=== PATIENT | male | born 1965 | race Two or more races ===

== ENCOUNTER 2017-06-17 08:40 | Day surgery (SDC) | payer BC ==
[2017-06-17] MEDS ORDERED: LACTATED RINGERS 1,000 ML IV ONE (09:15)
[2017-06-17 09:21] VITALS: TEMP 98.6
[2017-06-17] MEDS ORDERED: LIDOCAINE 1% INJ 10MG/ML (20 ML MDV) ONE (09:41)
[2017-06-17] MEDS ORDERED: PROPOFOL 10 MG/ML 20 ML VIAL IV ONE (09:41)
--- NOTE | 2017-06-17 10:11 | P.PCN ---
Date of Procedure: 06/17/17 Procedure(s) Performed: Brief history: Patient is a pleasant 51-year-old white male, scheduled for an elective upper endoscopy as well as colonoscopy as a part of evaluation of recurrent eye deficiency anemia. He was recently noted to have a hemoglobin of 6.7 requiring 2 units of blood transfusion. He had a similar episode 3 years ago and had an upper endoscopy as well as colonoscopy that was unremarkable. He does have long -standing history of GERD and has been on Prilosec 20 mg daily. Procedure performed: Esophagogastroduodenoscopy with biopsy Colonoscopy with snare polypectomy Preoperative diagnosis: Recurrent iron deficiency anemia Long-standing history of GERD. Anesthesia: MAC Procedure: After informed consent was obtained from the patient was brought into the endoscopy unit and IV sedation was administered by anesthesia under continuous monitoring. Initially upper endoscopy was done. The Olympus GF 160 video endoscope was inserted inserted into the mouth and esophagus intubated without any difficulty and was gradually advanced into the stomach and duodenum and carefully examined. The bulb and second part of the duodenum appeared normal. The scope was then withdrawn into the stomach adequately insufflated with air and upon careful examination the antrum and body, had multiple small gastric polyps which were biopsied. The cardia and fundus appeared normal. The scope was then withdrawn into the esophagus. Moderate size hiatal hernia noted. The GE junction was located at 35 cm to the incisors. It appeared regular with no erythema erosions or ulcerations. Rest of the esophagus appeared normal. Patient tolerated the procedure well. At this time the patient continued to remain sedation. Initial digital rectal examination was normal. Olympus CF 160 video colonoscope was then inserted into the rectum and gradually advanced to the cecum [id number] difficulty. Careful examination was performed as the scope was gradually being withdrawn. The prep was excellent. The cecum, and 1 cm polyp that was removed by snare polypectomy. In the transverse colon there was another 1 cm polyp removed by snare polypectomy. ascending colon, transverse colon, descending colon, sigmoid colon and rectum appeared normal. Scattered diffuse diverticulosis seen. Retroflexion was performed in the rectum and no lesions were noted. Patient tolerated the procedure well. Impression: 1. Upper endoscopy revealed moderate size hiatal hernia and small gastric polyps. 2. Colonoscopy revealed 1 cm cecal and transverse colon polyp status post snare polypectomy and moderate sigmoid diverticulosis. Recommendations: Findings of this examination were discussed with the patient as well as his family. He was advised to follow with the biopsy results. He can have a repeat screening colonoscopy in 3-5 years. He'll be scheduled for a small bowel capsule endoscopy to evaluate for small bowel source of occult GI blood loss.
[2017-06-17 10:39] VITALS: RESP 16
[2017-06-17 10:41] VITALS: BP 121/78; PULSE 78
== END 2017-06-17 11:18 | disposition home or self-care (01) ==
LOC: ORWHC2ENDO 08:40
PROVIDERS: ATTEND Internal Medicine Gastroenterology
DX: K31.7 Polyp of stomach and duodenum (principal); K21.9 Gastro-esophageal reflux disease without esophagitis; K44.9 Diaphragmatic hernia without obstruction or gangrene; D12.0 Benign neoplasm of cecum; D12.3 Benign neoplasm of transverse colon; K57.30 Diverticulosis of large intestine without perforation or abscess without bleeding; Z79.899 Other long term (current) drug therapy
CPT/HCPCS: 88305; 45385; 43239; J2001; J2704

== ENCOUNTER → 2017-07-01 | Day surgery (SDC) | payer BC ==
[~2017-07-01] MED LIST: SIMETHICONE 40 MG/0.6 ML DROPS 2,000 MG/30 ML BOTTLE PO ONE
== END ==
LOC: ORWHC2ENDO 07:00
PROVIDERS: ATTEND Internal Medicine Gastroenterology
DX: D50.9 Iron deficiency anemia, unspecified (principal); K92.1 Melena
CPT/HCPCS: 91110

== ENCOUNTER 2019-12-05 20:23 | Inpatient (IN) | payer BC ==
[2019-12-05] MEDS ORDERED: NALOXONE 0.4 MG/ML 1 ML VIAL IV PRN (20:38)
[2019-12-05] MEDS ORDERED: HYDROmorphone 2 MG TAB PO PRN (20:38)
[2019-12-05] MEDS ORDERED: ONDANSETRON 4 MG/2 ML VIAL IVP PRN (20:38)
[2019-12-05] MEDS ORDERED: metroNIDAZOLE-NS PMX 500 MG in SALINE 1 100ML.BAG IVPB STA (20:38)
--- NOTE | 2019-12-05 20:39 | ED ---
Abdominal Pain HPI - General Chief Complaint: Abdominal Pain Stated Complaint: Diverticulitis Time Seen by Provider: 12/05/19 20:26 Source: patient, EMS, RN notes reviewed Mode of arrival: EMS Limitations: no limitations - History of Present Illness Initial Comments: 54-year-old male presents emergency department as a transfer [facility] for acute diverticulitis with perforation. Patient's had recurrent diverticulitis no prior perforations does not see a current surgeon. Patient has seen Dr. Coles in the past. Pain started yesterday progressed today. He's had some loose stools he denies eating or drinking today. No reported fever. Patient states pulses pain is in his left lower quadrant. - Related Data Home Medications Medication Instructions Recorded Confirmed ALPRAZolam [Xanax] 1 tab PO DAILY PRN 06/17/17 06/17/17 Citalopram Hydrobromide [CeleXA] 20 mg PO DAILY 06/17/17 06/17/17 Multivitamin/Iron/Folic Acid 1 tab PO DAILY 06/17/17 06/17/17 [Centrum Complete Multivit Tab] Omeprazole [PriLOSEC] 20 mg PO AC-BRKFST 06/17/17 06/17/17 Simvastatin [Zocor] 1 tab PO HS 06/17/17 06/17/17 Vit A,C & B-[id number]-[id number] [Ivite] 1 tab PO DAILY PRN 06/17/17 06/17/17 Allergies Allergy/AdvReac Type Severity Reaction Status Date / Time No Known Allergies Allergy Verified 06/17/17 08:58 Review of Systems ROS Statement: Those systems with pertinent positive or pertinent negative responses have been documented in the HPI. ROS Other: All systems not noted in ROS Statement are negative. Past Medical History Past Medical History: GERD/Reflux Additional Past Medical History / Comment(s): Diverticulitis History of Any Multi-Drug Resistant Organisms: None Reported Past Surgical History: Hernia Repair, Tonsillectomy Additional Past Surgical History / Comment(s): BILATERAL ROTATOR CUFFS ARTHROSCOPY, EGD/COLONOSCOPY. UMBILICAL HERNIA REPAIR. Past Anesthesia/Blood Transfusion Reactions: No Reported Reaction Additional Past Anesthesia/Blood Transfusion Reaction / Comment(s): PT HAD A BLOOD TRANSFUSION IN 2017 FOR LOWER HGB 6.9 NO ISSUES Past Psychological History: Anxiety Smoking Status: Never smoker Past Alcohol Use History: Occasional Past Drug Use History: None Reported - Past Family History Father Family Medical History: Diabetes Mellitus General Exam Limitations: no limitations General appearance: alert, in no apparent distress Head exam: Present: atraumatic, normocephalic, normal inspection Neck exam: Present: normal inspection. Absent: tenderness, meningismus, lymphadenopathy Respiratory exam: Present: normal lung sounds bilaterally. Absent: respiratory distress, wheezes, rales, rhonchi, stridor Cardiovascular Exam: Present: regular rate, normal rhythm, normal heart sounds. Absent: systolic murmur, diastolic murmur, rubs, gallop, clicks GI/Abdominal exam: Present: soft, tenderness (Moderate left lower quadrant), rebound, normal bowel sounds. Absent: distended, guarding, rigid Course Vital Signs 12/05/19 20:29 Temperature 98 F Pulse Rate 74 Respiratory 18 Rate Blood Pressure 133/72 O2 Sat by Pulse 100 Oximetry Medical Decision Making - Medical Decision Making CT shows evidence of acute enterocolitis with perforation no abscess. Labs shows mild leukocytosis no lactic acidosis. Patient was given Levaquin patient will be admitted to Dr. Morrissey on Zosyn, pain control. Disposition Clinical Impression: Diverticulitis of colon with perforation Disposition: ADMITTED IP TO THIS HOSP Condition: Serious Referrals: Geovanny Miguel MD [Primary Care Provider] - 1-2 days
[2019-12-05] MEDS ORDERED: LEVOFLOXACIN 750MG-D5W PMX 750 MG in DEXTROSE/WATER 1 150ML.BAG IVPB SCH (20:45)
[2019-12-05] MEDS ORDERED: PIPERACILLIN-TAZOBACTAM 3.375 GM in SODIUM CHLORIDE 0.9% 100 ML IVPB STA (20:58)
[2019-12-05] MEDS: SODIUM CHLORIDE 0.9% 1,000 ML IV SCH (21:37)
[2019-12-05] MEDS: HYDROmorphone 0.5 MG/0.5 ML SYRINGE IVP PRN (22:51)
[2019-12-06] MEDS ORDERED: metroNIDAZOLE-NS PMX 500 MG in SALINE 1 100ML.BAG IVPB SCH
[2019-12-06] MEDS: HYDROmorphone 0.5 MG/0.5 ML SYRINGE IVP PRN ×4 (05:04→17:32)
[2019-12-06] MEDS: SODIUM CHLORIDE 0.9% 1,000 ML IV SCH ×3 (05:04→22:40)
[2019-12-06] MEDS: PIPERACILLIN-TAZOBACTAM 3.375 GM in SODIUM CHLORIDE 0.9% 100 ML IVPB SCH ×3 (05:05→22:39)
--- NOTE | 2019-12-06 14:10 | XR ---
EXAMINATION TYPE: XR abdomen 2V DATE OF EXAM: 12/06/2019 COMPARISON: NONE HISTORY: Pain TECHNIQUE: One view abdominal series FINDINGS: The osseous structures are intact. The bowel gas pattern is nonspecific. Lung bases are clear. Hiat al hernia noted. Postsurgical changes seen. Arthropathy of the hips. Degenerative changes seen. Vascu lar calcifications noted. IMPRESSION: 1. Nonspecific abdomen.
--- NOTE | 2019-12-06 14:18 | P.CONS ---
<Samantha Mendoza - Last Filed: 12/06/19 14:02> History of Present Illness - Reason for Consult Consult date: 12/06/19 - History of Present Illness CHIEF COMPLAINT: Abdominal pain HISTORY OF PRESENT ILLNESS: This is a 54-year-old male with a known history of recurrent diverticulitis, anxiety, GERD, umbilical hernia repair, hyperlipidemia and GI bleeds. Patient was a transfer from [facility] for acute diverticulitis with perforation. He initially presented to ER with complaints of lower abdominal pain. He reports his symptoms have started last week initia lly with black tarry stools. That appeared to resolve and then he started having right and left lower quadrant abdominal pain that continued to worsen. He rates his pain at 8/10. Patient reports eating a Page nut mix about 3 days ago. Computed tomography scan of abdomen at [place] has shown new to monitor. Severe acute diverticulitis proximal to mid sigmoid colon and upper to mid pelvis with perforation. His last bowel movement was on Tuesday which was normal. He reports taking one dose of Cipro that his PCP started for acute diverticulitis. Last colonoscopy [address] Coles patient reports checking diverticulosis. Denies any fever, chills, sweats, nausea or vomiting. He is afebrile. WBC 11.25, hemoglobin 12.8 and lactic acid 1.3 at [facility] PAST MEDICAL HISTORY: See list. PAST SURGICAL HISTORY: See list. MEDICATIONS: See list. ALLERGIES: See list. SOCIAL HISTORY: No illicit drug use. REVIEW OF SYSTEMS: CONSTITUTIONAL: Denies fever or chills. HEENT: Denies blurred vision, vision changes, or eye pain. Denies hemoptysis ENDOCRINE: Denies heat or cold intolerance. CARDIOVASCULAR: Denies chest pain or pressure. RESPIRATORY: No shortness of breath. GASTROINTESTINAL: Denies abdominal pain. Denies nausea or vomiting. NEURO: Denies history of seizures. PSYCH: No depression or suicidal ideation HEMATOLOGIC: Denies bleeding disorders. LYMPHATIC: The patient denies any lumps and bumps around the neck. GENITOURINARY: Denies any blood in urine or increased urinary frequency. MUSCULOSKELETAL: Denies myalgias. Denies joint swelling. Denies decreased range of motion beyond patients baseline. SKIN: Denies pruitis. Denies rash. PHYSICAL EXAM: VITAL SIGNS: Reviewed GENERAL: Well-developed in no acute distress. HEENT: No sclera icterus. Extraocular movements grossly intact. Moist buccal mucosa. Head is atraumatic, normocephalic. Hears conversational speech. No nasal drainage. NECK: Supple without lymphadenopathy. CHEST: Non-labored respirations and equal bilateral excursions. CARDIOVASCULAR: Regular rate with regular rhythm. Palpable 2+ radial pulses. ABDOMEN: Soft. Nondistended. Lower mid abdomen and left lower quadrant tenderness with palpation MUSCULOSKELETAL: No clubbing or cyanosis. NEUROLOGIC: No focal or lateralizing signs. Cranial nerves II through XII grossly intact. PSYCH: Appropriate affect. Alert and oriented to person, place and time. SKIN: Well perfused. Good skin turgor. LABORATORY DATA: Tom 11.25, hemoglobin 12.8, lactic acid 1.3 at [facility] IMAGING: Computed tomography scan of the abdomen and pelvis showing new moderate to severe acute diverticulitis of the proximal to mid sigmoid colon and upper to mid pelvis with perforation ASSESSMENT: 1. Abdominal pain 2. Acute diverticulitis with perforation 3. History of diverticulitis 4. History of GI bleed PLAN: -Check two-view abdominal x-ray -Check stat CBC, PT/INR, CMP -Check 12-lead EKG -Continue IV Zosyn and IV Flagyl -Continue IV fluids -Continue pain medications -And Protonix 40 mg IV daily Physician Rn Recovery note has been reviewed by physician. Signing provider agrees with the documented findings, assessment, and plan of care. Past Medical History Past Medical History: GERD/Reflux Additional Past Medical History / Comment(s): Diverticulitis History of Any Multi-Drug Resistant Organisms: None Reported Past Surgical History: Hernia Repair, Tonsillectomy Additional Past Surgical History / Comment(s): BILATERAL ROTATOR CUFFS ARTHROSCOPY, EGD/COLONOSCOPY. UMBILICAL HERNIA REPAIR. Past Anesthesia/Blood Transfusion Reactions: No Reported Reaction Additional Past Anesthesia/Blood Transfusion Reaction / Comm: PT HAD A BLOOD TRANSFUSION IN 2017 FOR LOWER HGB 6.9 NO ISSUES Past Psychological History: Anxiety Additional Psychological History / Comment(s): TAKES XANAX PRN FOR JOB STRESS Smoking Status: Never smoker Past Alcohol Use History: Occasional Past Drug Use History: None Reported - Past Family History Father Family Medical History: Diabetes Mellitus Medications and Allergies Home Medications Medication Instructions Recorded Confirmed Type Citalopram Hydrobromide [CeleXA] 20 mg PO DAILY 06/17/17 12/05/19 History Omeprazole [PriLOSEC] 20 mg PO DAILY 06/17/17 12/05/19 History Simvastatin [Zocor] 20 mg PO HS 06/17/17 12/05/19 History ALPRAZolam [Xanax] 0.5 mg PO HS PRN 12/05/19 12/05/19 History Multivit-Min/FA/Lycopen/Lutein 1 tab PO DAILY 12/05/19 12/05/19 History [Centrum Silver Men Tablet] Allergies Allergy/AdvReac Type Severity Reaction Status Date / Time No Known Allergies Allergy Verified 12/05/19 21:28 Physical Exam Vitals: Vital Signs Temp Pulse Pulse Resp BP BP Pulse Ox 12/06/19 07:00 97.8 F 62 18 105/71 97 12/05/19 22:34 98.4 F 65 15 114/65 100 12/05/19 20:29 98 F 74 18 133/72 100 Intake and Output 12/05/19 12/06/19 12/06/19 22:59 06:59 14:59 Intake Total 130 1040 Balance 130 1040 Intake: IV 1040 Sodium Chloride 0.9% 1, 1040 000 ml @ 130 mls/hr IV . Q7H42M [facility] Rx#:[id number] Intake, IV Titration 130 Amount Sodium Chloride 0.9% 1, 130 000 ml @ 130 mls/hr IV . Q7H42M [facility] Rx#:[id number] Other: # Voids 2 2 3 Weight 96.615 kg <Brooklyn Simon - Last Filed: 12/06/19 20:54> History of Present Illness - History of Present Illness Patient seen and evaluated. Additional recommendations noted. Please see separate surgical consultation. Physical Exam Vitals: Vital Signs Temp Pulse Resp BP Pulse Ox 12/06/19 19:59 97.4 F L 67 20 127/83 99 12/06/19 14:19 98.5 F 57 L 14 135/89 98 12/06/19 07:00 97.8 F 62 18 105/71 97 12/05/19 22:34 98.4 F 65 15 114/65 100 Intake and Output 12/06/19 12/06/19 12/06/19 06:59 14:59 22:59 Intake Total 1040 Balance 1040 Intake: IV 1040 Sodium Chloride 0.9% 1, 1040 000 ml @ 130 mls/hr IV . Q7H42M [facility] Rx#:[id number] Other: # Voids 2 3 Results CBC & Chem 7: 12/06/19 14:09 12/06/19 14:09 Labs: Abnormal Lab Results - Last 24 Hours (Table) 12/06/19 Range/Units 14:09 Hgb 12.6 L (13.0-17.5) gm/dL Assessment and Plan (1) Diverticulitis of colon with perforation Current Visit: Yes Status: Acute Code(s): K57.20 - DVTRCLI OF LG INT W PERFORATION AND ABSCESS W/O BLEEDING SNOMED Code(s): 15330579
[2019-12-06 14:23] LABS: Basophils % (A) 0 %; Eosinophils # (A) 0.1 k/uL (0-0.7); Eosinophils % (A) 1 %; HCT 40.4 % (39.0-53.0); HGB 12.6 gm/dL (13.0-17.5); Hypochromasia Slight; Lymphocytes # (A) 1.3 k/uL (1.0-4.8); Lymphocytes % (A) 17 %; MCH 26.3 pg (25.0-35.0); MCHC 31.1 g/dL (31.0-37.0); MCV 84.4 fL (80.0-100.0); Mean Platelet Volume 7.8; Monocytes # (A) 0.5 k/uL (0-1.0); Monocytes % (A) 6 %; Neutrophils # (A) 5.6 k/uL (1.3-7.7); Neutrophils % (A) 73 %; Platelet Count 251 k/uL (150-450); RBC 4.78 m/uL (4.30-5.90); RDW 14.8 % (11.5-15.5); WBC 7.7 k/uL (3.8-10.6)
[2019-12-06 14:33] LABS: Prothrombin Time 10.3 sec (9.0-12.0)
[2019-12-06 14:34] LABS: ALT 15 U/L (4-49); AST 21 U/L (17-59); African American GFR (CKD) >90 (>60 ml/min/1.73 sqM); Albumin 4.2 g/dL (3.5-5.0); Alkaline Phosphatase 67 U/L (38-126); Anion Gap 9 mmol/L; Blood Urea Nitrogen 12 mg/dL (9-20); Carbon Dioxide 22 mmol/L (22-30); Chloride 106 mmol/L (98-107); Glucose 90 mg/dL (74-99); Non-African American GFR(CKD) >90 (>60 ml/min/1.73 sqM); Sodium 137 mmol/L (137-145); Total Bilirubin 0.7 mg/dL (0.2-1.3)
--- NOTE | 2019-12-06 15:41 | P.HPIM ---
History of Present Illness H&P Date: 12/06/19 Chief Complaint: Abdominal pain, transferred from [facility]. Mr. Rogel is a 54-year-old male, who is a patient of Dr. Miguel in outpatient setting, with a past medical history of chronic diverticulosis, GERD transferred from [facility] for concerns of diverticulitis. Patient states that he had sharp pain in both his lower abdominal quadrants mostly on the left side for the past couple of days. Patient has history of diverticulosis and thought it could be one of his flareups. Patient states that it is associated with some nausea but no vomiting. He denies having any diarrhea or constipation. Patient denies having any dysuria or hematuria. He denies having any low back pain or flank pain. He denies having any fevers or chills. The pain started to bother him since Tuesday night, Tuesday morning he went to [facility]. At [facility] he had a CAT scan of his abdomen and pelvis showing significant diverticulosis involving the left and sigmoid colon with nonfocal moderate to severe ill-defined fluid and fat stranding in the upper to middle pelvis anteriorly just left to him midline involving the proximal to mid sigmoid colon. There is perforation with extraluminal Syd. No peak wall fluid collection or drainable abscess. He also had blood work showing white count of 11.5, hemoglobin 12.8, platelets 297. Electrolytes sodium 137 combination 4, chloride 102, bicarbonate 27, BUN/creatinine 13 creatinine 1.0. AST 22, ALT 17, alkaline phosphatase 78, total bilirubin 0.8, albumin 4.8, ammonia less than 9, PTT/INR 10.9/1.03. Later the patient is transferred to [facility] with surgical consultation. Review of Systems REVIEW OF SYSTEMS: CONSTITUTIONAL: No fever, no malaise, no fatigue. HEENT: No recent visual problems or hearing problems. Denied any sore throat. CARDIOVASCULAR: No chest pain, palpitations, orthopnea or PND PULMONARY: Denies having any difficulty in breathing or cough GASTROINTESTINAL: As per HPI NEUROLOGICAL: No headaches, no weakness, no numbness. HEMATOLOGICAL: Denies any bleeding or petechiae. GENITOURINARY: Denies any burning micturition, frequency, or urgency. MUSCULOSKELETAL/RHEUMATOLOGICAL: No joint swelling or pain ENDOCRINE: Denies any polyuria or polydipsia. The rest of the 13-point review of systems is negative. Past Medical History Past Medical History: GERD/Reflux Additional Past Medical History / Comment(s): Diverticulitis History of Any Multi-Drug Resistant Organisms: None Reported Past Surgical History: Hernia Repair, Tonsillectomy Additional Past Surgical History / Comment(s): BILATERAL ROTATOR CUFFS ARTHROSCOPY, EGD/COLONOSCOPY. UMBILICAL HERNIA REPAIR. Past Anesthesia/Blood Transfusion Reactions: No Reported Reaction Additional Past Anesthesia/Blood Transfusion Reaction / Comment(s): PT HAD A BLOOD TRANSFUSION IN 2017 FOR LOWER HGB 6.9 NO ISSUES Past Psychological History: Anxiety Additional Psychological History / Comment(s): TAKES XANAX PRN FOR JOB STRESS Smoking Status: Never smoker Past Alcohol Use History: Occasional Past Drug Use History: None Reported - Past Family History Father Family Medical History: Diabetes Mellitus Medications and Allergies Home Medications Medication Instructions Recorded Confirmed Type Citalopram Hydrobromide [CeleXA] 20 mg PO DAILY 06/17/17 12/05/19 History Omeprazole [PriLOSEC] 20 mg PO DAILY 06/17/17 12/05/19 History Simvastatin [Zocor] 20 mg PO HS 06/17/17 12/05/19 History ALPRAZolam [Xanax] 0.5 mg PO HS PRN 12/05/19 12/05/19 History Multivit-Min/FA/Lycopen/Lutein 1 tab PO DAILY 12/05/19 12/05/19 History [Centrum Silver Men Tablet] Allergies Allergy/AdvReac Type Severity Reaction Status Date / Time No Known Allergies Allergy Verified 12/05/19 21:28 Physical Exam Vitals: Vital Signs Temp Pulse Pulse Resp BP BP Pulse Ox 12/06/19 07:00 97.8 F 62 18 105/71 97 12/05/19 22:34 98.4 F 65 15 114/65 100 12/05/19 20:29 98 F 74 18 133/72 100 Intake and Output 12/05/19 12/06/19 12/06/19 22:59 06:59 14:59 Intake Total 130 1040 Balance 130 1040 Intake: IV 1040 Sodium Chloride 0.9% 1, 1040 000 ml @ 130 mls/hr IV . Q7H42M [facility] Rx#:[id number] Intake, IV Titration 130 Amount Sodium Chloride 0.9% 1, 130 000 ml @ 130 mls/hr IV . Q7H42M [facility] Rx#:[id number] Other: # Voids 2 2 3 Weight 96.615 kg PHYSICAL EXAMINATION: GENERAL: appears to be in no acute distress, looks appropriate for his age HEENT: Pupils are round and equally reacting to light. EOMI. no scleral icterus. No conjunctival pallor. CARDIOVASCULAR: S1 and S2 heard. No additional sounds. PULMONARY: Bilateral breath sounds are positive. No wheeze or crackles. ABDOMEN: Soft, mild tenderness in the left upper and lower quadrants, nondistended, normoactive bowel sounds. No palpable organomegaly. MUSCULOSKELETAL: No joint swelling or deformity. EXTREMITIES: No cyanosis, clubbing, or pedal edema. NEUROLOGICAL: Alert awake oriented 3, Gross neurological examination did not reveal any focal deficits. SKIN: No rash Results CBC & Chem 7: 12/06/19 14:09 12/06/19 14:09 Thrombosis Risk Factor Assmnt - Choose All That Apply Any of the Below Risk Factors Present?: No Assessment and Plan Assessment: ASSESSMENT Abdominal pain due to Acute diverticulitis with perforation History of diverticulitis History of GERD History of hernia repair History of tonsillectomy History of umbilical hernia repair PLAN: Patient has been started on IV antibiotics in the form of Zosyn. Currently the patient does not have abdominal pain. His vitals within normal limits. Labs from [facility] reviewed. Surgery Dr. Simon on board and following. Patient will be getting an abdominal x-ray, further management depending on the course. We will keep the patient nothing by mouth. Lovenox for DVT prophylaxsis. Further recommendations depending on the progress of the patient.
--- NOTE | 2019-12-06 20:53 | P.GSCN ---
History of Present Illness Consult date: 12/06/19 History of present illness: CHIEF COMPLAINT: Diverticulitis HISTORY OF PRESENT ILLNESS: The patient is a 54-year-old male who was admitted as transfer from [facility] after developing severe abdominal pain from perforated diverticulitis. He had a CT of the abdomen and pelvis done yesterday at his local facility. His presentation to his local ER included severe abdominal pain, "I was prepped for surgery." Secondary to the potential need for critical care management, patient was transferred to [facility]. Patient also reports pre-existing history of anemia ongoing for the past 4 years-5 years with intermittent rectal bleeding after stressful episodes. Patient reports dark blood at those events. He also had blood transfusions for hemoglobin less than 7.0. He reports multiple workups including upper and lower endoscopies as well as bowel capsule performed by GI. He reports all findings were unremarkable. He reports his last bleeding episode was over 1-2 weeks ago. Now he presents for moderate severe bilateral lower abdominal pain. Since admission and IV antibiotics, his abdominal pain has moderately improved. He is more comfortable. His is at bedside. His also provides additional history of diverticulosis. Patient was eating nuts within 3 days of his current event. PAST MEDICAL HISTORY: See list and reviewed PAST SURGICAL HISTORY: See list and reviewed MEDICATIONS: See list and reviewed ALLERGIES: See list and reviewed SOCIAL HISTORY: See list and reviewed FAMILY HISTORY: See list and reviewed REVIEW OF ORGAN SYSTEMS: CONSTITUTIONAL: No fevers or chills. No recent weight loss. EYES: Denies any trouble with vision. Wears glasses. HEENT: No difficulties with hearing. No nosebleeds. No difficulty swallowing. RESPIRATORY: Denies pneumonia. Denies any troubles with breathing or dyspnea on exertion. CARDIOVASCULAR: Denies any chest pain, palpitations, or recent heart attacks. GASTROINTESTINAL: Has gastroesophageal reflux disease. Has pre-existing history of rectal bleeding including anemia. GENITOURINARY: Denies any blood in urine or increased urinary frequency. NEUROLOGICAL: Denies any numbness or tingling along the distal extremities. No seizure disorders or headaches. MUSCULOSKELETAL: Has back pain, stiffness or joint arthritis. SKIN: No current skin cancer. No rash. PSYCHIATRIC: Has depression. Has anxiety. ENDOCRINE: Denies current thyroid disorders. Denies any blood sugar glucose intolerance. HEME/LYMPHATIC: Denies any lumps and bumps around the neck. No recent deep venous thrombosis. Pre-existing history of chronic anemia. ALLERGY/IMMUNOLOGY: No immunoglobulin therapy. No immune deficiencies. BREAST: Denies current breast lumps, pain or nipple discharge. PHYSICAL EXAM: VITALS: Reviewed CONSTITUTIONAL: Well developed and in no acute distress. EYES: Conjuctivae without sclera icterus. Pupils are equally round and reactive to light. Extraocular movements grossly intact. HEAD, EARS, NOSE, THROAT: Moist buccal mucosa. Head is atraumatic, normoceph alic. Hears conversational speech. No nasal drainage. NECK: Supple. No JV distention. No thyroidomegaly. RESPIRATORY: Non-labored respirations and equal bilateral excursions. No gross wheezes. CARDIOVASCULAR: Regular rate and rhythm. Extremities without moderate edema. Palpable 2+ radial pulses. ABDOMEN: Soft. Tender along the bilateral lower abdomen. Has worsening abdominal pain with jarring of the bed. LYMPH: No neck lymphadenopathy. MUSCULOSKELETAL: Nail and fingers with good capillary refill. SKIN: Warm and well perfused with good skin turgor. NEUROLOGIC: Cranial nerves II through XII grossly intact. Sensation upper and extremities intact. No focal or lateralizing signs. PSYCH: Appropriate affect. Alert and oriented to person, place and time. Displays appropriate insight. RECORDS: previous old records reviewed of colonoscopy 2018 demonstrating scattered diverticulosis with removal of tubular adenoma sigmoid colon. ASSESSMENT: 1. Abnormal computed tomography scan of perforated diverticulitis at outside institution PLAN: 1. Recommend abdominal x-ray to exclude free air. 2. Recommend CBC and CMP to monitor infection. 3. Continue IV antibiotics 4. Surgical intervention pending clinical course including follow-up abdominal x-ray. Patient is aware that present pneumoperitoneum on abdominal film may warrant surgical intervention with colostomy. ADDENDUM: CLINCAL LABS: Reviewed. WBC normal 7.7, no left shift. IMAGING: Independently reviewed abdominal x-ray without free air. Outside CT of the abdomen and pelvis independently reviewed demonstrating moderate sized paraesophageal hiatal hernia incorporating over 40% of the stomach incarcerated in the mediastinum. Moderate stool burden identified. Also moderate scattered diverticulosis. Focal inflammation of sigmoid diverticulitis of the sigmoid colon of the lower pelvis. No diffuse free air identified. This is my independent interpretation. RADIOLOGY: Report reviewed, x-ray confirms unremarkable abdominal film. With findings on computed tomography scan including abdominal x-ray and labs, at this time conservative management. Patient does report moderate improvement of his abdominal pain. Continue with IV antibiotics. Outpatient management for diverticulitis also reviewed. Thank you for this kind consultation. Past Medical History Past Medical History: GERD/Reflux Additional Past Medical History / Comment(s): Diverticulitis History of Any Multi-Drug Resistant Organisms: None Reported Past Surgical History: Hernia Repair, Tonsillectomy Additional Past Surgical History / Comment(s): BILATERAL ROTATOR CUFFS ARTHROSCOPY, EGD/COLONOSCOPY. UMBILICAL HERNIA REPAIR. Past Anesthesia/Blood Transfusion Reactions: No Reported Reaction Additional Past Anesthesia/Blood Transfusion Reaction / Comm: PT HAD A BLOOD TRANSFUSION IN 2017 FOR LOWER HGB 6.9 NO ISSUES Past Psychological History: Anxiety Additional Psychological History / Comment(s): TAKES XANAX PRN FOR JOB STRESS Smoking Status: Never smoker Past Alcohol Use History: Occasional Past Drug Use History: None Reported - Past Family History Father Family Medical History: Diabetes Mellitus Medications and Allergies Home Medications Medication Instructions Recorded Confirmed Type Citalopram Hydrobromide [CeleXA] 20 mg PO DAILY 06/17/17 12/05/19 History Omeprazole [PriLOSEC] 20 mg PO DAILY 06/17/17 12/05/19 History Simvastatin [Zocor] 20 mg PO HS 06/17/17 12/05/19 History ALPRAZolam [Xanax] 0.5 mg PO HS PRN 12/05/19 12/05/19 History Multivit-Min/FA/Lycopen/Lutein 1 tab PO DAILY 12/05/19 12/05/19 History [Centrum Silver Men Tablet] Allergies Allergy/AdvReac Type Severity Reaction Status Date / Time No Known Allergies Allergy Verified 12/05/19 21:28 Surgical - Exam Vital Signs Temp Pulse Resp BP Pulse Ox 98 F 74 18 133/72 100 12/05/19 20:29 12/05/19 20:29 12/05/19 20:29 12/05/19 20:29 12/05/19 20:29 Results - Labs 12/06/19 14:09 12/06/19 14:09 Abnormal Lab Results - Last 24 Hours (Table) 12/06/19 Range/Units 14:09 Hgb 12.6 L (13.0-17.5) gm/dL Diabetes panel 12/06/19 Range/Units 14:09 Sodium 137 (137-145) mmol/L Potassium 4.0 (3.5-5.1) mmol/L Chloride 106 (98-107) mmol/L Carbon Dioxide 22 (22-30) mmol/L BUN 12 (9-20) mg/dL Creatinine 0.82 (0.66-1.25) mg/dL Glucose 90 (74-99) mg/dL Calcium 9.0 (8.4-10.2) mg/dL AST 21 (17-59) U/L ALT 15 (4-49) U/L Alkaline Phosphatase 67 (38-126) U/L Total Protein 7.0 (6.3-8.2) g/dL Albumin 4.2 (3.5-5.0) g/dL Calcium panel 12/06/19 Range/Units 14:09 Calcium 9.0 (8.4-10.2) mg/dL Albumin 4.2 (3.5-5.0) g/dL Pituitary panel 12/06/19 Range/Units 14:09 Sodium 137 (137-145) mmol/L Potassium 4.0 (3.5-5.1) mmol/L Chloride 106 (98-107) mmol/L Carbon Dioxide 22 (22-30) mmol/L BUN 12 (9-20) mg/dL Creatinine 0.82 (0.66-1.25) mg/dL Glucose 90 (74-99) mg/dL Calcium 9.0 (8.4-10.2) mg/dL Adrenal panel 12/06/19 Range/Units 14:09 Sodium 137 (137-145) mmol/L Potassium 4.0 (3.5-5.1) mmol/L Chloride 106 (98-107) mmol/L Carbon Dioxide 22 (22-30) mmol/L BUN 12 (9-20) mg/dL Creatinine 0.82 (0.66-1.25) mg/dL Glucose 90 (74-99) mg/dL Calcium 9.0 (8.4-10.2) mg/dL Total Bilirubin 0.7 (0.2-1.3) mg/dL AST 21 (17-59) U/L ALT 15 (4-49) U/L Alkaline Phosphatase 67 (38-126) U/L Total Protein 7.0 (6.3-8.2) g/dL Albumin 4.2 (3.5-5.0) g/dL Assessment and Plan (1) Diverticulitis of colon with perforation Current Visit: Yes Status: Acute Code(s): K57.20 - DVTRCLI OF LG INT W PERFORATION AND ABSCESS W/O BLEEDING SNOMED Code(s): 82661724
[2019-12-06 21:23] LABS: Appearance,Urine Clear (Clear); Bilirubin,Urine Negative (Negative); Blood,Urine Negative (Negative); Color,Urine Light Yellow; Glucose,Urine (UA) Negative (Negative); Ketones,Urine 2+ (Negative); Leukocyte Esterase,Urine Negative (Negative); Nitrite,Urine Negative (Negative); Protein,Urine Negative (Negative); Specific Gravity,Urine 1.013 (1.001-1.035); Urobilinogen,Urine <2.0 mg/dL (<2.0)
[2019-12-06] MEDS: ALPRAZolam 0.5 MG TAB PO PRN (22:39)
[2019-12-07] MEDS: PIPERACILLIN-TAZOBACTAM 3.375 GM in SODIUM CHLORIDE 0.9% 100 ML IVPB SCH ×3 (05:28→23:16)
[2019-12-07] MEDS: SODIUM CHLORIDE 0.9% 1,000 ML IV SCH ×3 (05:29→20:28)
[2019-12-07] MEDS: CITALOPRAM HYDROBROMIDE 20 MG TAB PO SCH (08:39)
[2019-12-07] MEDS: PANTOPRAZOLE 40 MG/10 ML VIAL IVP SCH (08:40)
[2019-12-07] MEDS: ENOXAPARIN 40 MG/0.4 ML SYRINGE SQ SCH (08:43)
--- NOTE | 2019-12-07 09:20 | P.PN ---
Subjective Progress Note Date: 12/07/19 CHIEF COMPLAINT: Diverticulitis HISTORY OF PRESENT ILLNESS: The patient is a 54-year-old male who presented as transfer from [facility] due to ruptured acute diverticulitis. He reports moderate improvement since admission 24 hours ago. He is ambulating. No nausea or vomiting. Pain is controlled. He is barely using any narcotic pain meds. So far, he is happy with the level of care. REVIEW OF ORGAN SYSTEMS: No nausea or vomiting. No chest pain. No productive sputum. PHYSICAL EXAM: VITALS: Reviewed CONSTITUTIONAL: Well developed and in no acute distress. EYES: Conjuctivae without sclera icterus. Pupils are equally round and reactive to light. Extraocular movements grossly intact. HEAD, EARS, NOSE, THROAT: Moist buccal mucosa. Head is atraumatic, normocephalic. Hears conversational speech. No nasal drainage. RESPIRATORY: Non-labored respirations and equal bilateral excursions. No gross wheezes. CARDIOVASCULAR: Regular rate and rhythm. Extremities without moderate edema. Palpable 2+ radial pulses. ABDOMEN: Soft. Moderate improvement of lower quadrant pain, tolerable. No peritonitis. MUSCULOSKELETAL: Nail and fingers with good capillary refill. SKIN: Warm and well perfused with good skin turgor. NEUROLOGIC: Cranial nerves II through XII grossly intact. Sensation upper and extremities intact. No focal or lateralizing signs. PSYCH: Appropriate affect. Alert and oriented to person, place and time. Displays appropriate insight. LABS: Reviewed. WBC normal, 7.7. Hemoglobin 12.1. ASSESSMENT: 1. Acute diverticulitis. 2. Chronic anemia, pre-existing PLAN: 1. May start clear liquid diet and advance to full liquid diet 2. May be discharged on full liquid diet, once tolerating and 24-48 hours 3. Dietitian consult for diverticulitis diet 4. Follow-up in 1 week regarding symptomatic anemia and diverticulitis 5. Recommend antibiotic management for more 1 week Objective - Vital Signs Vital signs: Vital Signs Temp 97.8 F 12/07/19 07:00 Pulse 69 12/07/19 07:00 Resp 15 12/07/19 07:00 BP 120/77 12/07/19 07:00 Pulse Ox 98 12/07/19 07:00 Intake & Output 12/06/19 12/07/19 12/07/19 18:59 06:59 18:59 Intake Total 1040 0 Output Total 200 Balance 1040 -200 Intake: IV 1040 Sodium Chloride 0.9% 1, 1040 000 ml @ 130 mls/hr IV . Q7H42M [facility] Rx#:[id number] Oral 0 Output: Urine 200 Other: # Voids 3 1 - Labs CBC & Chem 7: 12/07/19 09:42 12/06/19 14:09 Labs: Abnormal Lab Results - Last 24 Hours (Table) 12/06/19 12/06/19 Range/Units 14:09 20:50 Hgb 12.6 L (13.0-17.5) gm/dL Urine Ketones 2+ H (Negative) Assessment and Plan (1) Diverticulitis of colon with perforation Current Visit: Yes Status: Acute Code(s): K57.20 - DVTRCLI OF LG INT W PERFORATION AND ABSCESS W/O BLEEDING SNOMED Code(s): 81656219 (2) Chronic anemia Current Visit: Yes Status: Acute Code(s): D64.9 - ANEMIA, UNSPECIFIED SNOMED Code(s): 684950069 (3) Paraesophageal hiatal hernia Current Visit: Yes Status: Acute Code(s): K44.9 - DIAPHRAGMATIC HERNIA WITHOUT OBSTRUCTION OR GANGRENE SNOMED Code(s): 2877221 (4) Lower abdominal pain Current Visit: Yes Status: Acute Code(s): R10.30 - LOWER ABDOMINAL PAIN, UNSPECIFIED SNOMED Code(s): 74957361 (5) Anxiety disorder Current Visit: Yes Status: Acute Code(s): F41.9 - ANXIETY DISORDER, UNSPECIFIED SNOMED Code(s): 730185326 (6) Depressive disorder Current Visit: Yes Status: Acute Code(s): F32.9 - MAJOR DEPRESSIVE DISORDER, SINGLE EPISODE, UNSPECIFIED SNOMED Code(s): 86404130
[2019-12-07 10:03] LABS: Basophils % (A) 1 %; Eosinophils # (A) 0.1 k/uL (0-0.7); Eosinophils % (A) 2 %; HCT 39.6 % (39.0-53.0); Hypochromasia Slight; Lymphocytes # (A) 1.4 k/uL (1.0-4.8); Lymphocytes % (A) 21 %; MCH 25.5 pg (25.0-35.0); MCHC 30.2 g/dL (31.0-37.0); MCV 84.4 fL (80.0-100.0); Mean Platelet Volume 7.4; Monocytes # (A) 0.3 k/uL (0-1.0); Monocytes % (A) 5 %; Neutrophils # (A) 4.5 k/uL (1.3-7.7); Neutrophils % (A) 69 %; Platelet Count 276 k/uL (150-450); RBC 4.69 m/uL (4.30-5.90); RDW 14.7 % (11.5-15.5); WBC 6.5 k/uL (3.8-10.6)
--- NOTE | 2019-12-07 10:47 | CDI ---
Documentation Clarification Form Date: 12/07/2019 10:38:32 AM From: Miroslava Barksdale RN, CCDS Admit Date: 12/05/2019 09:07:00 PM Patient Name: Freedom Rogel Visit Number: [id number] ATTENTION: The Clinical Documentation Specialists (CDI) and [facility] Coding Staff appreciate your assistance in clarifying documentation. Please respond to the clarification below the line at the bottom and electronically sign. The CDI & [facility] Coding staff will review the response and follow-up if needed. Please note: Queries are made part of the Legal Health Record. If you have any questions, please contact the author of this message via ITS. Dr. Brooklyn Simon Anemia is documented in the 12/05 Surgical Consult and requires further specificity. History/Risk Factors: Gerd, Diverticulitis Clinical indicators: 12/05 Surgical Consult: "HPI-Patient also reports pre-existing history of anemia ongoing for the past 4 years-5 years with intermittent rectal bleeding after stressful episodes. CONSTITUTIONAL: Has pre-existing history of rectal bleeding including anemia. Pre-existing history of chronic anemia." 12/05-12/06 Hemoglobin: 12.6/12 12/05-12/06 Hematocrit: 40.4/39.6 Treatment: Labs AM daily Lovenox 40mg SQ QD 0.9% NS @ 130 cc/hr In order to capture the severity of condition, please clarify the type of anemia and etiology if known. Acute on chronic blood loss anemia Chronic blood loss anemia Iron deficiency anemia Nutritional anemia Anemia of chronic disease Unable to determine Other, please specify (Last Form Revision: June 2019) Chronic blood loss anemia 12/07/19 @ 1206 MTDChanda
[2019-12-07 15:24] VITALS: BMI 30.5
[2019-12-07] MEDS ORDERED: ACETAMINOPHEN TAB 325 MG TAB PO PRN (16:14)
[2019-12-07] MEDS ORDERED: HYDROcodone/APAP 5-325MG 1 EACH TAB PO PRN (19:27)
[2019-12-07 20:22] LABS: Ferritin 21.1 ng/mL (22.0-322.0)
[2019-12-07 20:28] LABS: % Iron Saturation 4.83 (15.00-50.00)
[2019-12-07] MEDS ORDERED: MELATONIN 5 MG TABLET PO SCH (21:00)
[2019-12-07] MEDS: ALPRAZolam 0.5 MG TAB PO PRN (23:18)
--- NOTE | 2019-12-08 01:42 | P.PN ---
Subjective Progress Note Date: 12/07/19 Principal diagnosis: Acute Diverticulitis Mr. Rogel is a 54-year-old male, who is a patient of Dr. Miguel in outpatient setting, with a past medical history of chronic diverticulosis, GERD transferred from [facility] [place] for concerns of diverticulitis. Patient states that he had sharp pain in both his lower abdominal quadrants mostly on the left side for the past couple of days. Patient has history of diverticulosis and thought it could be one of his flareups. Patient states that it is associated with some nausea but no vomiting. He denies having any diarrhea or constipation. Patient denies having any dysuria or hematuria. He denies having any low back pain or flank pain. He denies having any fevers or chills. The pain started to bother him since Tuesday night, Tuesday morning he went to [facility] [place]. At [facility] [place] he had a CAT scan of his abdomen and pelvis showing significant diverticulosis involving the left and sigmoid colon with nonfocal moderate to severe ill-defined fluid and fat stranding in the upper to middle pelvis anteriorly just left to him midline involving the proximal to mid sigmoid colon. There is perforation with extraluminal Syd. No peak wall fluid collection or drainable abscess. He also had blood work showing white count of 11.5, hemoglobin 12.8, platelets 297. Electrolytes sodium 137 combination 4, ch loride 102, bicarbonate 27, BUN/creatinine 13 creatinine 1.0. AST 22, ALT 17, alkaline phosphatase 78, total bilirubin 0.8, albumin 4.8, ammonia less than 9, PTT/INR 10.9/1.03. Later the patient is transferred to [facility] with surgical consultation. On 12/07/2019-no acute events reported by nursing staff overnight. Patient is comfortably sitting up in the bed appears to be no acute distress. He states that his abdominal pain is much better it is not there when he is still but when he moves around it is 2 out of 10. Patient denies having any other active complaints. On review of systems he denies having any chills or fever. No chest pain or palpitations. No dysuria or hematuria. On reviewing the vitals patient has been afebrile for the past 24 hours saturating at 100% on room air blood pressure 132/83, heart rate around 60s. On reviewing the patient's labs w dinorah count is at 6.5 hemoglobin at 12 platelets 276. Patient's urine analysis is positive for 2+ ketones, that goes along with his n.p.o. status. It is negative for nitrites and leukocyte esterase. Active Medications Acetaminophen (Tylenol Tab) 650 mg PO Q6HR PRN PRN Reason: Fever and/ or Pain Last Admin: 12/07/19 16:22 Dose: 650 mg Documented by: Hydrocodone Bitart/Acetaminophen (Edison 5-325) 1 each PO Q6HR PRN PRN Reason: Pain Last Admin: 12/07/19 20:27 Dose: 1 each Documented by: Alprazolam (Xanax) 0.5 mg PO HS PRN PRN Reason: Insomnia Last Admin: 12/07/19 23:18 Dose: 0.5 mg Documented by: Citalopram Hydrobromide (Celexa) 20 mg PO DAILY [facility] Last Admin: 12/07/19 08:39 Dose: Not Given Documented by: Enoxaparin Sodium (Lovenox) 40 mg SQ DAILY [facility] Last Admin: 12/07/19 08:43 Dose: Not Given Documented by: Hydromorphone HCl (Dilaudid) 1 mg PO Q3HR PRN PRN Reason: Severe Pain Hydromorphone HCl (Dilaudid) 0.5 mg IVP Q3HR PRN PRN Reason: Moderate Pain Last Admin: 12/06/19 17:32 Dose: 0.5 mg Documented by: Sodium Chloride (Saline 0.9%) 1,000 mls @ 130 mls/hr IV .Q7H42M [facility] Last Admin: 12/07/19 20:28 Dose: 130 mls/hr Documented by: Piperacillin Sod/Tazobactam (Sod 3.375 gm/ Sodium Chloride) 100 mls @ 25 mls/hr IVPB Q8H [facility] Last Admin: 12/07/19 23:16 Dose: 25 mls/hr Documented by: Naloxone HCl (Narcan) 0.2 mg IV Q2M PRN PRN Reason: Opioid Reversal Ondansetron HCl (Zofran) 4 mg IVP Q8HR PRN PRN Reason: Nausea And Vomiting Pantoprazole Sodium (Protonix) 40 mg IVP DAILY [facility] Last Admin: 12/07/19 08:40 Dose: 40 mg Documented by: Objective - Vital Signs Vital signs: Vital Signs Temp 97.8 F 12/07/19 07:00 Pulse 69 12/07/19 07:00 Resp 15 12/07/19 07:00 BP 120/77 12/07/19 07:00 Pulse Ox 98 12/07/19 07:00 Intake & Output 12/06/19 12/07/19 12/07/19 18:59 06:59 18:59 Intake Total 1040 0 Output Total 200 Balance 1040 -200 Intake: IV 1040 Sodium Chloride 0.9% 1, 1040 000 ml @ 130 mls/hr IV . Q7H42M [facility] Rx#:[id number] Oral 0 Output: Urine 200 Other: Voiding Method Toilet # Voids 3 1 - Exam PHYSICAL EXAMINATION: GENERAL: appears to be in no acute distress, looks appropriate for his age HEENT: Pupils are round and equally reacting to light. EOMI. no scleral icterus. No conjunctival pallor. CARDIOVASCULAR: S1 and S2 heard. No additional sounds. PULMONARY: Bilateral breath sounds are positive. No wheeze or crackles. ABDOMEN: Soft, mild tenderness in the left upper and lower quadrants, nondistended, hypo active bowel sounds EXTREMITIES: No cyanosis, clubbing, or pedal edema. NEUROLOGICAL: Alert awake oriented 3, Gross neurological examination did not reveal any focal deficits. SKIN: No rash - Labs CBC & Chem 7: 12/07/19 09:42 12/06/19 14:09 Labs: Abnormal Lab Results - Last 24 Hours (Table) 12/06/19 12/06/19 12/07/19 Range/Units 14:09 20:50 09:42 Hgb 12.6 L 12.0 L (13.0-17.5) gm/dL MCHC 30.2 L (31.0-37.0) g/dL Urine Ketones 2+ H (Negative) Assessment and Plan Assessment: ASSESSMENT Abdominal pain due to Acute diverticulitis with perforation History of diverticulitis History of GERD History of hernia repair History of tonsillectomy History of umbilical hernia repair PLAN: Patient has been started on IV antibiotics in the form of Zosyn and to be continued on it. Patient showed significant improvement in terms of his abdominal symptoms compared to yesterday. Surgery Dr. Simon is following the patient, started on clear liquids. If the patient is able to tolerate it anticipate discharge in the next 24 hours.
[2019-12-08] MEDS: PIPERACILLIN-TAZOBACTAM 3.375 GM in SODIUM CHLORIDE 0.9% 100 ML IVPB SCH (05:34)
[2019-12-08] MEDS: SODIUM CHLORIDE 0.9% 1,000 ML IV SCH ×2 (05:34→11:07)
[2019-12-08] MEDS: CITALOPRAM HYDROBROMIDE 20 MG TAB PO SCH (08:39)
[2019-12-08] MEDS: PANTOPRAZOLE 40 MG/10 ML VIAL IVP SCH (08:39)
[2019-12-08] MEDS: ENOXAPARIN 40 MG/0.4 ML SYRINGE SQ SCH (08:39)
[2019-12-08 09:24] LABS: Basophils % (A) 1 %; Eosinophils # (A) 0.1 k/uL (0-0.7); Eosinophils % (A) 2 %; HCT 38.9 % (39.0-53.0); HGB 11.7 gm/dL (13.0-17.5); Hypochromasia Moderate; Lymphocytes # (A) 1.2 k/uL (1.0-4.8); Lymphocytes % (A) 28 %; MCH 25.6 pg (25.0-35.0); MCHC 30.1 g/dL (31.0-37.0); MCV 85.1 fL (80.0-100.0); Mean Platelet Volume 7.6; Monocytes # (A) 0.3 k/uL (0-1.0); Monocytes % (A) 6 %; Neutrophils # (A) 2.6 k/uL (1.3-7.7); Neutrophils % (A) 61 %; Platelet Count 253 k/uL (150-450); RBC 4.58 m/uL (4.30-5.90); RDW 14.8 % (11.5-15.5); WBC 4.2 k/uL (3.8-10.6)
[2019-12-08 09:46] LABS: African American GFR (CKD) >90 (>60 ml/min/1.73 sqM); Anion Gap 7 mmol/L; Blood Urea Nitrogen 6 mg/dL (9-20); Calcium 8.8 mg/dL (8.4-10.2); Carbon Dioxide 23 mmol/L (22-30); Chloride 109 mmol/L (98-107); Glucose 150 mg/dL (74-99); Non-African American GFR(CKD) >90 (>60 ml/min/1.73 sqM); Potassium 3.9 mmol/L (3.5-5.1); Sodium 139 mmol/L (137-145)
--- NOTE | 2019-12-08 11:03 | P.PN ---
Progress Note - Text Progress Note Date: 12/08/19 Patient feels better today. He denies any significant abdominal pain. On exam her vital signs are stable. Abdomen soft. Resolving diverticula is. Patient was discharged home today.
[2019-12-08 15:32] VITALS: BP 136/61; PULSE 94; RESP 16; TEMP 97.8
--- NOTE | 2019-12-08 19:54 | DS ---
DISCHARGE SUMMARY DATE OF SERVICE: 12/08/2019 FINAL DIAGNOSES: 1. Abdominal pain secondary to acute diverticulitis with perforation. 2. History of diverticulitis. 3. History of gastroesophageal reflux disease. 4. History of hernia repair. 5. History of tonsillectomy. 6. History umbilical hernia repair. 7. Anemia, normocytic anemia of chronic disease. 8. Acute anuria on admission. 9. FULL CODE. DISCHARGE DISPOSITION: The patient will be discharged stable, guarded prognosis. The patient is keen on going home. Discharge cleared by Surgery. HISTORY: This 54-year-old gentleman with a past medical history of multiple medical problems, being followed by Dr. Miguel in the the outpatient setting was admitted with abdominal pain with possibly diverticulitis and the perforation. The patient was treated with antibiotics. Dr. Simon saw the patient and recommended advance the diet to clear liquids and Dr. Castro saw the patient and recommended the patient to be discharged and outpatient followup. On exam, vitals stable. Cardiovascular system: S1, S2. Abdomen soft, nontender. No mass palpable. No guarding. No rigidity. The plain x-ray abdomen was nonspecific. The patient will be discharged in stable condition. DIET: Clear liquids. ACTIVITY: Limited until followup. FOLLOW UP: Follow up with Dr. Miguel in 1-2 days. CBC and BMP. Follow with Dr. Simon as recommended. MEDICATIONS: 1. Celexa 20 mg daily. 2. Multivitamins 1 p.o. daily. 3. Prilosec 20 mg daily. 4. Xanax 0.5 q.h.s. p.r.n. 5. Zocor 20 mg q.h.s. 6. Augmentin b.i.d. for 1 week. Once again, the patient was discharged in stable condition, guarded prognosis. Total time taken 35 minutes. MMODL / IJN: [id number] /
== END 2019-12-08 15:04 | disposition home or self-care (01) | DRG 392 ==
LOC: EC 20:23 → 4SSUR 21:07
PROVIDERS: ADMIT Hospitalist; ATTEND Hospitalist
DX: K57.20 Diverticulitis of large intestine with perforation and abscess without bleeding (principal); F32.9 Major depressive disorder, single episode, unspecified; E78.5 Hyperlipidemia, unspecified; D63.8 Anemia in other chronic diseases classified elsewhere; F41.9 Anxiety disorder, unspecified; D50.0 Iron deficiency anemia secondary to blood loss (chronic); G47.00 Insomnia, unspecified; K44.9 Diaphragmatic hernia without obstruction or gangrene; K52.9 Noninfective gastroenteritis and colitis, unspecified; Z79.899 Other long term (current) drug therapy; Z83.3 Family history of diabetes mellitus; R34 Anuria and oliguria; Z87.19 Personal history of other diseases of the digestive system; Z90.89 Acquired absence of other organs
CPT/HCPCS: 74019; 80048; 80053; 81003; 82728; 83540; 83550; 85025; 85610; 93005; 96365; 99285

== ENCOUNTER → 2020-02-28 | Outpatient (CLI) | payer BC ==
[2020-02-28 15:33] LABS: HCT 40.1 % (39.0-53.0); HGB 12.6 gm/dL (13.0-17.5); Hypochromasia Moderate; MCH 24.8 pg (25.0-35.0); MCHC 31.5 g/dL (31.0-37.0); MCV 78.9 fL (80.0-100.0); Mean Platelet Volume 7.3; Platelet Count 260 k/uL (150-450); RBC 5.09 m/uL (4.30-5.90); RDW 15.1 % (11.5-15.5); WBC 6.8 k/uL (3.8-10.6)
[2020-02-28 15:43] LABS: ALT 18 U/L (4-49); AST 28 U/L (17-59); African American GFR (CKD) >90 (>60 ml/min/1.73 sqM); Albumin 4.7 g/dL (3.5-5.0); Alkaline Phosphatase 67 U/L (38-126); Anion Gap 10 mmol/L; Blood Urea Nitrogen 24 mg/dL (9-20); Calcium 9.8 mg/dL (8.4-10.2); Carbon Dioxide 22 mmol/L (22-30); Chloride 106 mmol/L (98-107); Glucose 94 mg/dL (74-99); Non-African American GFR(CKD) >90 (>60 ml/min/1.73 sqM); Potassium 4.3 mmol/L (3.5-5.1); Sodium 138 mmol/L (137-145); Total Bilirubin 0.5 mg/dL (0.2-1.3); Total Protein 7.9 g/dL (6.3-8.2)
== END | disposition home or self-care (01) ==
LOC: LABPAT 14:04
PROVIDERS: ATTEND Surgery Plastic and Reconstructive Surgery
DX: Z01.818 Encounter for other preprocedural examination (principal)
CPT/HCPCS: 80053; 85027

== ENCOUNTER 2020-03-06 07:00 | Inpatient (IN) | payer BC ==
[2020-03-04 11:17] VITALS: BMI 28.7
--- NOTE | 2020-03-06 07:06 | P.GSHP ---
History of Present Illness H&P Date: 03/06/20 CHIEF COMPLAINT: Colon screen HISTORY OF PRESENT ILLNESS: The patient is a 54-year-old male who presents for colon screen. Lower endoscopy was offered for further evaluation and management. PAST MEDICAL HISTORY: Please see list. PAST SURGICAL HISTORY: Please see list. MEDICATIONS: Please see list. ALLERGIES: Please see list. SOCIAL HISTORY: No illicit drug use FAMILY HISTORY: No reports of Crohn disease or ulcerative colitis. REVIEW OF ORGAN SYSTEMS: CONSTITUTIONAL: No reports of fevers or chills. PHYSICAL EXAM: VITAL SIGNS: Stable GENERAL: Well-developed pleasant in no acute distress. HEENT: No scleral icterus. Extraocular movements grossly intact. Moist buccal mucosa. NECK: Supple without lymphadenopathy. CHEST: Unlabored respirations. Equal bilateral excursions. CARDIOVASCULAR: Regular rate and rhythm. Distal 2+ pulses. ABDOMEN: Soft, nontender, nondistended. MUSCULOSKELETAL: No clubbing, cyanosis, or edema. ASSESSMENT: 1. Colon screen. PLAN: 1. Recommend proceeding with a lower endoscopy Past Medical History Past Medical History: GERD/Reflux, GI Bleed, Hyperlipidemia Additional Past Medical History / Comment(s): Diverticulitis. Hx low iron, HGB w/ transfusion. LG hiatal hernia. History of Any Multi-Drug Resistant Organisms: None Reported Past Surgical History: Hernia Repair, Orthopedic Surgery, Tonsillectomy Additional Past Surgical History / Comment(s): BILAT ROTATOR CUFFS ARTHROSCOPY, EGD/COLONOSCOPY. UMBILICAL HERNIA REPAIR. Lasik bilat. Exc ganglion cyst Rt wrist. Past Anesthesia/Blood Transfusion Reactions: No Reported Reaction Additional Past Anesthesia/Blood Transfusion Reaction / Comment(s): Hx BLOOD TRANSFUSION 2016, FOR LOW HGB 6.9, NO ISSUES. "Wake up quickly." Smoking Status: Never smoker - Past Family History Father Family Medical History: Diabetes Mellitus Medications and Allergies Home Medications Medication Instructions Recorded Confirmed Type RX: Citalopram Hydrobromide 20 mg PO DAILY 06/17/17 03/04/20 History [CeleXA] RX: Omeprazole [PriLOSEC] 20 mg PO DAILY 06/17/17 03/04/20 History RX: Simvastatin [Zocor] 20 mg PO HS 06/17/17 03/04/20 History RX: ALPRAZolam [Xanax] 0.5 mg PO HS PRN 12/05/19 03/04/20 History RX: Multivit-Min/FA/Lycopen/Lutein 1 tab PO DAILY 12/05/19 03/04/20 History [Centrum Silver Men Tablet] Allergies Allergy/AdvReac Type Severity Reaction Status Date / Time No Known Allergies Allergy Verified 03/04/20 10:26
[2020-03-06] MEDS: LACTATED RINGERS 1,000 ML IV SCH (07:50)
[2020-03-06] MEDS ORDERED: LIDOCAINE 1% INJ 10MG/ML (20 ML MDV) ONE (08:04)
[2020-03-06] MEDS ORDERED: PROPOFOL 10 MG/ML 20 ML VIAL IV ONE (08:04)
--- NOTE | 2020-03-06 08:40 | P.PCN ---
Date of Procedure: 03/06/20 Description of Procedure: PREOPERATIVE DIAGNOSIS: History of diverticulitis with sepsis POSTOPERATIVE DIAGNOSIS: Pandiverticulosis OPERATION: Colonoscopy to the cecum, ileocecal valve SURGEON: Brooklyn Simon MD. ANESTHESIA: MAC. INDICATIONS: The patient is a 54-year-old male who presents history of diverticulitis with sepsis. Surgical resection was described. Lower endoscopy assessment is described for surgical excision. Benefits and risks were described and informed consent was obtained. DESCRIPTION OF PROCEDURE: The patient had undergone Suprep. He had been brought into the operating room and laid in the left lateral decubitus position. After adequate intravenous sedation, the rectum was examined with 2% lidocaine jelly. No external hemorrhoids were encountered. The rectal tone was within normal limits. No lesions were palpated in the rectal vault. An Olympus colonoscope was advanced until the cecum, ileocecal valve were clearly viewed. The prep was excellent. Severe briceño diverticulosis was encountered. No colonic polyps were found. Retroflexion of the scope demonstrated grade 1 internal hemorrhoids without active bleeding or inflammation. The colon was desufflated. The patient had tolerated the procedure well. Withdrawal time was over 6 minutes. FINDINGS: Aronchick preparation quality scale 1 (1-5) Internal hemorrhoids, grade 1 No external prolapsed hemorrhoids. No arteriovenous malformations. No adenomatous polyps. Severe pandiverticulosis. RECOMMENDATIONS: Recommend proceeding with sigmoid colectomy for symptomatic recurrent diverticulitis Repeat colonoscopy in 5 years, 2024
[2020-03-06] MEDS ORDERED: ONDANSETRON 4 MG/2 ML VIAL IVP PRN (08:44)
[2020-03-06] MEDS ORDERED: METOCLOPRAMIDE 5 MG/ML 2 ML VIAL IVP PRN (08:44)
[2020-03-06] MEDS ORDERED: Antibiotics per Pharmacy 1 EACH MISC MISCELLANE PRN (08:44)
--- NOTE | 2020-03-06 09:08 | P.GSHP ---
History of Present Illness H&P Date: 03/06/20 CHIEF COMPLAINT: Diverticulitis HISTORY OF PRESENT ILLNESS: The patient is a 54-year-old male who presents with history of ruptured diverticulitis with sepsis. He completed a colonoscopy for evaluation of his diverticulosis including surgical resection. Colonoscopy confirmed no additional adenomas or colon cancer. Surgical resection is advised for complicated diverticulitis. PAST MEDICAL HISTORY: See list and reviewed PAST SURGICAL HISTORY: See list and reviewed MEDICATIONS: See list and reviewed ALLERGIES: See list and reviewed SOCIAL HISTORY: See list and reviewed FAMILY HISTORY: See list and reviewed REVIEW OF ORGAN SYSTEMS: CONSTITUTIONAL: No fevers or chills. No recent weight loss. EYES: Denies any trouble with vision. Wears glasses. HEENT: No difficulties with hearing. No nosebleeds. No difficulty swallowing. RESPIRATORY: Denies pneumonia. Denies any troubles with breathing or dyspnea on exertion. CARDIOVASCULAR: Denies any chest pain, palpitations, or recent heart attacks. GASTROINTESTINAL: Has gastroesophageal reflux disease. Has pre-existing history of rectal bleeding including anemia. GENITOURINARY: Denies any blood in urine or increased urinary frequency. NEUROLOGICAL: Denies any numbness or tingling along the distal extremities. No seizure disorders or headaches. MUSCULOSKELETAL: Has back pain, stiffness or joint arthritis. SKIN: No current skin cancer. No rash. PSYCHIATRIC: Has depression. Has anxiety. ENDOCRINE: Denies current thyroid disorders. Denies any blood sugar glucose intolerance. HEME/LYMPHATIC: Denies any lumps and bumps around the neck. No recent deep venous thrombosis. Pre-existing history of chronic anemia. ALLERGY/IMMUNOLOGY: No immunoglobulin therapy. No immune deficiencies. BREAST: Denies current breast lumps, pain or nipple discharge. PHYSICAL EXAM: VITALS: Reviewed CONSTITUTIONAL: Well developed and in no acute distress. EYES: Conjuctivae without sclera icterus. Pupils are equally round and reactive to light. Extraocular movements grossly intact. HEAD, EARS, NOSE, THROAT: Moist buccal mucosa. Head is atraumatic, normocephalic. Hears conversational speech. No nasal drainage. NECK: Supple. No JV distention. No thyroidomegaly. RESPIRATORY: Non-labored respirations and equal bilateral excursions. No gross wheezes. CARDIOVASCULAR: Regular rate and rhythm. Extremities without moderate edema. Palpable 2+ radial pulses. ABDOMEN: Soft. No peritonitis. LYMPH: No neck lymphadenopathy. MUSCULOSKELETAL: Nail and fingers with good capillary refill. SKIN: Warm and well perfused with good skin turgor. NEUROLOGIC: Cranial nerves II through XII grossly intact. Sensation upper and extremities intact. No focal or lateralizing signs. PSYCH: Appropriate affect. Alert and oriented to person, place and time. Displays appropriate insight. ASSESSMENT: 1. History of perforated diverticulitis PLAN: 1. Recommend surgical resection for complicated diverticulitis Past Medical History Past Medical History: GERD/Reflux, GI Bleed, Hyperlipidemia Additional Past Medical History / Comment(s): Diverticulitis. Hx low iron, HGB w/ transfusion. LG hiatal hernia. History of Any Multi-Drug Resistant Organisms: None Reported Past Surgical History: Hernia Repair, Orthopedic Surgery, Tonsillectomy Additional Past Surgical History / Comment(s): BILAT ROTATOR CUFFS ARTHROSCOPY, EGD/COLONOSCOPY. UMBILICAL HERNIA REPAIR. Lasik bilat. Exc ganglion cyst Rt wrist. Past Anesthesia/Blood Transfusion Reactions: No Reported Reaction Additional Past Anesthesia/Blood Transfusion Reaction / Comment(s): Hx BLOOD TRANSFUSION 2016, FOR LOW HGB 6.9, NO ISSUES. "Wake up quickly." Smoking Status: Never smoker - Past Family History Father Family Medical History: Diabetes Mellitus Medications and Allergies Home Medications Medication Instructions Recorded Confirmed Type Citalopram Hydrobromide [CeleXA] 20 mg PO DAILY 06/17/17 03/04/20 History Omeprazole [PriLOSEC] 20 mg PO DAILY 06/17/17 03/04/20 History Simvastatin [Zocor] 20 mg PO HS 06/17/17 03/04/20 History ALPRAZolam [Xanax] 0.5 mg PO HS PRN 12/05/19 03/04/20 History Multivit-Min/FA/Lycopen/Lutein 1 tab PO DAILY 12/05/19 03/04/20 History [Centrum Silver Men Tablet] Allergies Allergy/AdvReac Type Severity Reaction Status Date / Time No Known Allergies Allergy Verified 03/06/20 07:24 Surgical - Exam Vital Signs Temp Pulse Resp BP Pulse Ox 97.6 F 68 16 131/78 99 03/06/20 07:20 03/06/20 07:20 03/06/20 07:20 03/06/20 07:20 03/06/20 07:20
[2020-03-06 10:35] LABS: Basophils % (A) 1 %; Eosinophils # (A) 0.2 k/uL (0-0.7); Eosinophils % (A) 2 %; HCT 40.8 % (39.0-53.0); HGB 12.8 gm/dL (13.0-17.5); Hypochromasia Slight; Lymphocytes # (A) 1.3 k/uL (1.0-4.8); Lymphocytes % (A) 21 %; MCH 24.3 pg (25.0-35.0); MCHC 31.4 g/dL (31.0-37.0); MCV 77.4 fL (80.0-100.0); Mean Platelet Volume 7.6; Microcytosis Slight; Monocytes # (A) 0.4 k/uL (0-1.0); Monocytes % (A) 6 %; Neutrophils # (A) 4.4 k/uL (1.3-7.7); Neutrophils % (A) 69 %; Platelet Count 266 k/uL (150-450); RBC 5.27 m/uL (4.30-5.90); RDW 15.2 % (11.5-15.5); WBC 6.4 k/uL (3.8-10.6)
[2020-03-06 10:48] LABS: ALT 20 U/L (4-49); AST 30 U/L (17-59); African American GFR (CKD) >90 (>60 ml/min/1.73 sqM); Albumin 4.6 g/dL (3.5-5.0); Alkaline Phosphatase 61 U/L (38-126); Anion Gap 8 mmol/L; Blood Urea Nitrogen 14 mg/dL (9-20); Calcium 9.4 mg/dL (8.4-10.2); Carbon Dioxide 26 mmol/L (22-30); Chloride 104 mmol/L (98-107); Glucose 98 mg/dL (74-99); Non-African American GFR(CKD) >90 (>60 ml/min/1.73 sqM); Potassium 4.1 mmol/L (3.5-5.1); Sodium 138 mmol/L (137-145); Total Bilirubin 0.5 mg/dL (0.2-1.3); Total Protein 7.7 g/dL (6.3-8.2)
[2020-03-06 10:55] LABS: Glucose,Whole Blood 121 mg/dL (75-99)
--- NOTE | 2020-03-06 11:00 | P.PN ---
Progress Note - Text Progress Note Date: 03/06/20 Labs reviewed demonstrating low hemoglobin. Patient has history of chronic anemia. Iron infusion ordered.
[2020-03-06] MEDS: SODIUM CHLORIDE 0.9% 1,000 ML IV SCH ×2 (12:42→22:30)
[2020-03-06] MEDS: metroNIDAZOLE 500 MG TAB PO SCH ×3 (13:03→22:29)
[2020-03-06] MEDS: NEOMYCIN 500 MG TAB PO SCH ×3 (13:03→22:29)
[2020-03-06] MEDS: SODIUM FERRIC GLUCONAT-SUCROSE 125 MG in SODIUM CHLORIDE 0.9% 100 ML IVPB SCH (14:00)
[2020-03-07] MEDS ORDERED: metroNIDAZOLE-NS PMX 500 MG in SALINE 1 100ML.BAG IVPB ONE (05:00)
[2020-03-07] MEDS ORDERED: HYDROmorphone 0.5 MG/0.5 ML SYRINGE IVP PRN (06:23)
[2020-03-07] MEDS ORDERED: IV FLUID CONTINUATION 1,000 ML IV ONE ×2 (06:43)
[2020-03-07] MEDS ORDERED: fentaNYL (PF) 50 MCG/ML 2 ML AMP IVP ONE ×2 (06:57→07:05)
[2020-03-07] MEDS ORDERED: MIDAZOLAM 2 MG/2 ML VIAL IVP ONE ×2 (06:57→07:05)
[2020-03-07] MEDS ORDERED: ACETAMINOPHEN TAB 500 MG TAB PO ONE (07:00)
[2020-03-07] MEDS ORDERED: MELOXICAM 7.5 MG TAB PO ONE (07:00)
[2020-03-07] MEDS ORDERED: HEPARIN SODIUM,PORCINE 5,000 UNIT/ML 1 ML VIAL SQ ONE (07:00)
[2020-03-07] MEDS ORDERED: ALVIMOPAN 12 MG CAPSULE PO ONE (07:00)
[2020-03-07] MEDS: ONDANSETRON 4 MG/2 ML VIAL IVP ONE ×2 (07:01→12:57)
[2020-03-07] MEDS ORDERED: DEXAMETHASONE SOD PHOSPHATE 4 MG/ML 1 ML VIAL IVP ONE (07:02)
[2020-03-07] MEDS ORDERED: HEPARIN SODIUM,PORCINE 5,000 UNIT/ML 1 ML VIAL ONE (07:17)
[2020-03-07] MEDS ORDERED: fentaNYL (PF) 50 MCG/ML 2 ML AMP ONE (07:34)
[2020-03-07] MEDS ORDERED: PROPOFOL 10 MG/ML 20 ML VIAL IV ONE (07:34)
[2020-03-07] MEDS ORDERED: GLYCOPYRROLATE 0.2 MG/ML 2 ML VIAL ONE (07:34)
[2020-03-07] MEDS ORDERED: WATER FOR INJECTION, STERILE 10 ML VIAL IV ONE (07:34)
[2020-03-07] MEDS ORDERED: SUCCINYLCHOLINE CHLORIDE 100 MG/5 ML SYR IV ONE (07:34)
[2020-03-07] MEDS ORDERED: HYDROmorphone (PF) 1 MG/ML ONE (07:34)
[2020-03-07] MEDS ORDERED: ROCURONIUM 10 MG/ML (10 ML VIAL) IV ONE (07:34)
[2020-03-07] MEDS ORDERED: NEOSTIGMINE 1 MG/ML 10 ML VIAL ONE (07:34)
[2020-03-07] MEDS ORDERED: LIDOCAINE 1% INJ 10MG/ML (20 ML MDV) ONE (07:34)
[2020-03-07] MEDS ORDERED: MIDAZOLAM 2 MG/2 ML VIAL ONE (07:34)
[2020-03-07] MEDS ORDERED: ROPIVACAINE 5 MG/ML 30 ML VIAL ONE (07:34)
[2020-03-07] MEDS ORDERED: ePHEDrine SULFATE/0.9% NACL/PF 50 MG/5 ML SYRINGE IV ONE (07:34)
[2020-03-07] MEDS ORDERED: LACTATED RINGERS 1,000 ML IV ONE ×2 (08:01→11:07)
[2020-03-07] MEDS ORDERED: LIDOCAINE 1%-EPI 1:100,000 20 ML VIAL SQ ONE (08:12)
--- NOTE | 2020-03-07 11:33 | P.OP ---
Date of Procedure: 03/07/20 Description of Procedure: SURGEON: BABAK HART MD PREOPERATIVE DIAGNOSES: 1. History of perforated sigmoid diverticulitis 2. Gastroesophageal reflux disease 3. Hiatal hernia 4. Generalized anxiety disorder 5. Iron deficiency anemia 6. Depressive disorder 7. History of epigastric ventral hernia repair POSTOPERATIVE DIAGNOSES: 1. History of perforated sigmoid diverticulitis 2. Gastroesophageal reflux disease 3. Hiatal hernia 4. Generalized anxiety disorder 5. Iron deficiency anemia 6. Depressive disorder 7. Peritoneal adhesions, epigastrium OPERATION: 1. Robotic-assisted daVinci Xi laparoscopic extensive lysis of adhesions 2. Robotic-assisted daVinci Xi laparoscopic with sigmoid colectomy and low anterior resection using 29 mm EEA Ethicon powered stapler 3. Intraoperative colonoscopy for flexible sigmoidoscopy Anesthesia: GETA, local, regional Estimated Blood Loss (ml): 30 Pathology: other (Sigmoid colon, anastomosis, rectal resection) Condition: stable Disposition: floor Operative Findings: 1. Adhesions at the epigastric abdominal wall from previous umbilical hernia repair lysed 2. Moderate redundant sigmoid colon with over 1 foot resected 3. EEA anastomosis 29 mm with negative leak test 4. Flexible sigmoidoscopy demonstrates no leak INDICATIONS: The patient is a 54-year-old male with history of previous perforated sigmoid diverticulitis. Prior colonoscopy was performed without findings of neoplasm or malignancy. Surgical intervention was described. Benefits and risks, including infection, bowel injury, ureteral injury, colostomy creation and possibility for additional surgery was discussed at length. Informed consent was obtained. All questions of the patient and family were answered. DESCRIPTION: Earlier the patient had undergone a bowel prep using the enhanced colon recovery program. The patient was transferred to the operating room onto a split leg table and repositioned to modified lithotomy following intubation. A Monahan catheter was placed. The abdomen was then prepped and draped in standard sterile fashion as Ioban was placed along the abdomen to minimize any contamination of skin floor. After a timeout protocol was performed, attention was then brought to the left upper quadrant whereby a 0 degree 5 mm laparoscopic trocar entry was performed. The abdominal cavity was entered and insufflated to 15 mmHg pressure, which was tolerated well. Diagnostic laparoscopy confirmed adhesions along the epigastrium from previous ventral hernia repair mesh and metal tackers. All trochars placed on the upper abdomen. Next trocars were placed 20 cm superior from the pelvis. A 12-mm trocar was placed along the right lateral abdominal wall. A 8 mm port was placed along the right upper quadrant. Ports were placed 10 cm apart from each other including 15-20 cm away from the target anatomy of the left pelvis. The 5-mm port was exchanged for an 8 mm robotic port. The stapler 12-mm port was arranged along the upper left lateral abdominal wall. The patient was then placed in Trendelenburg position, at least 17. The robotic da Deyanira XI system was primed. The robot was docked from the right side of the patient. Using atraumatic graspers and vessel sealer, the robotic system was docked and primed as described. Instruments were interchanged by the employment legal assistant including needle auto transport driver, clip svp digital ad sales, hook cautery, robotic stapler and vessel sealer. The robot stapler was prepared along the right lateral abdominal wall. Next, attention was brought to identify the sigmoid colon. To address the epigastric adhesions, combination of blunt including sharp dissection was performed using a hook cautery and vessel sealer. Extensive lysis of adhesions occurred with vessel sealer and hook cautery. The sigmoid mesentery was mobilized using a vessel sealer. Using multiple fires of the robot stapler 60 mm black and green loads, the descending colon was divided. Mobilization of the colon was performed to the pelvic brim along the sacral promontory. The mesentery of the sigmoid colon was mobilized towards the descending colon using a vessel sealer. Next, the top of the rectum was divided using robotic stapler 60 mm black and green loads. The rest of the sigmoid colon mesentery was mobilized using vessel sealer. Additionally, the sigmoid colon was mobilized onto the colon to minimize injury to the ureters. I went to the foot of the bed for selection of a sizer. A colorectal anastomosis with an ILS 29 mm was selected after using a sizer along the rectum. For the proximal sigmoid colon, a 29-mm anvil was placed after creating a colotomy then closed using a stapler at the distal end. The robot arms were temporarily undocked. A stapler was entered along the rectum and mated to the anvil for 1 minute. The anastomosis was created. I then performed a bedside flexible sigmoidoscopy where no leaks or defects were confirmed as the employment legal assistant placed normal saline along the pelvis. I re-scrubbed into the case. Irrigation fluid was suctioned from the abdomen. The robot was undocked. All needles were removed from the abdominal cavity. Via the stapler site 12-mm left upper quadrant, the resected colon was brought out through the 12 mm trocar of the left upper quadrant after widening the skin incision to 3-cm. The fascial defect was oversewn using 0 Vicryl and a Aakash Monreal. All incisions were copiously irrigated using dilute normal saline and hydrogen peroxide mixture. Next all pneumoperitoneum was evacuated from the abdominal cavity. The 8-mm trocar sites were reapproximated using 4-0 Monocryl in an interrupted subcuticular fashion. Local anesthetic was infiltrated to all wounds for postop analgesia. All incisions were also cleansed with diluted hydrogen peroxide. An Optifoam surgical dressing was placed over the colon extraction site and PARMINDER site. Exofin was applied to the rest of the skin incisions. The patient was extubated successfully. The patient was transferred to the postanesthesia care unit in stable condition.
[2020-03-07] MEDS: MEPERIDINE 50 MG/ML SYRINGE IVP ONE ×2 (11:35→11:45)
--- NOTE | 2020-03-07 12:26 | P.ANPRN ---
Procedure Note - Anesthesia - Nerve Block Performed Bilateral Transversus Abdominis Single Time Out Performed: Yes (656) Date of Procedure: 03/07/20 Procedure Start Time: 06:57 Procedure Stop Time: 07:04 Location of Patient: PreOp Indication: Acute Post-Operative Pain, Requested by Surgeon Specifically requested for management of pain by : Brooklyn Simon Sedation Type: Sedate with meaningful contact maintained Preparation: Sterile Prep Position: Supine Catheter: None Needle Types: Pajunk Needle Gauge: 21 Ultrasound used to visualize needle placement: Yes Ultrasound used to observe medication spread: Yes Injectate: 0.5% Ropivacaine (see comment for volume) (15cc each side) Blood Aspirated: No Pain Paresthesia on Injection Noted: No Resistance on Injection: Normal Image Stored and Saved: Yes Events: Uneventful and Well Tolerated
[2020-03-07] MEDS: LACTATED RINGERS 1,000 ML IV SCH ×2 (12:57)
[2020-03-07] MEDS: SODIUM CHLORIDE 0.9% 1,000 ML IV SCH ×2 (12:58→17:42)
[2020-03-07] MEDS: SODIUM FERRIC GLUCONAT-SUCROSE 125 MG in SODIUM CHLORIDE 0.9% 100 ML IVPB SCH (17:35)
[2020-03-07] MEDS: HYDROmorphone 1 MG/ML 1 ML SYRINGE IVP PRN ×2 (19:05→23:22)
[2020-03-08] MEDS: HYDROmorphone 1 MG/ML 1 ML SYRINGE IVP PRN ×2 (03:33→09:59)
[2020-03-08] MEDS: LACTATED RINGERS 1,000 ML IV SCH ×2 (08:04)
[2020-03-08] MEDS ORDERED: TAMSULOSIN 0.4 MG CAP.ER.24H PO STA (10:22)
[2020-03-08 11:01] LABS: Basophils % (A) 0 %; Eosinophils % (A) 0 %; HCT 34.7 % (39.0-53.0); HGB 11.2 gm/dL (13.0-17.5); Hypochromasia Slight; Lymphocytes # (A) 1.2 k/uL (1.0-4.8); Lymphocytes % (A) 14 %; MCH 24.3 pg (25.0-35.0); MCHC 32.3 g/dL (31.0-37.0); MCV 75.2 fL (80.0-100.0); Mean Platelet Volume 8.1; Microcytosis Slight; Monocytes # (A) 0.7 k/uL (0-1.0); Monocytes % (A) 8 %; Neutrophils # (A) 6.5 k/uL (1.3-7.7); Neutrophils % (A) 76 %; Platelet Count 208 k/uL (150-450); RBC 4.61 m/uL (4.30-5.90); RDW 15.4 % (11.5-15.5); WBC 8.5 k/uL (3.8-10.6)
[2020-03-08 11:17] LABS: ALT 15 U/L (4-49); AST 26 U/L (17-59); African American GFR (CKD) >90 (>60 ml/min/1.73 sqM); Albumin 3.6 g/dL (3.5-5.0); Albumin/Globulin Ratio 1.4; Alkaline Phosphatase 58 U/L (38-126); Anion Gap 4 mmol/L; Blood Urea Nitrogen 5 mg/dL (9-20); Calcium 8.8 mg/dL (8.4-10.2); Carbon Dioxide 24 mmol/L (22-30); Chloride 107 mmol/L (98-107); Globulin 2.6 g/dL; Glucose 112 mg/dL (74-99); Non-African American GFR(CKD) >90 (>60 ml/min/1.73 sqM); Potassium 3.5 mmol/L (3.5-5.1); Sodium 135 mmol/L (137-145); Total Bilirubin 0.3 mg/dL (0.2-1.3); Total Protein 6.2 g/dL (6.3-8.2)
[2020-03-08] MEDS: ACETAMINOPHEN TAB 325 MG TAB PO SCH ×2 (11:50→17:27)
[2020-03-08] MEDS: KETOROLAC 15 MG/ML 1 ML VIAL IVP SCH ×3 (11:51→17:27)
[2020-03-08] MEDS: SODIUM FERRIC GLUCONAT-SUCROSE 125 MG in SODIUM CHLORIDE 0.9% 100 ML IVPB SCH (11:52)
[2020-03-08] MEDS: metroNIDAZOLE-NS PMX 500 MG in SALINE 1 100ML.BAG IVPB SCH (16:06)
[2020-03-08] MEDS: SODIUM CHLORIDE 0.9% 1,000 ML IV SCH (16:08)
--- NOTE | 2020-03-08 16:39 | P.PN ---
Subjective Progress Note Date: 03/08/20 CHIEF COMPLAINT: Diverticulitis HISTORY OF PRESENT ILLNESS: The patient is a 54-year-old female status post low anterior resection. Pain is well controlled. He is voiding following flomax. No nausea. He is ambulating much and eager to go home. ROS: No reports of nausea and vomiting. No bowel movements. No fevers or chills. No new chest pain. No productive sputum PHYSICAL EXAM: VITAL SIGNS: Reviewed CONSTITUTIONAL: Well developed and in no acute distress. EYES: Conjuctivae without sclera icterus. Extraocular movements grossly intact. HEAD, EARS, NOSE, THROAT: Moist buccal mucosa. Head is atraumatic, normocephalic. Hears conversational speech. No nasal drainage. NECK: Supple. RESPIRATORY: Non-labored respirations and equal bilateral excursions. CARDIOVASCULAR: Palpable 2+ radial pulses. ABDOMEN: No peritonitis MUSCULOSKELETAL: No gross deformity of the lower extremities noted. No clubbing. No cyanosis. SKIN: Good skin turgor. Well perfused. NEUROLOGIC: Cranial nerves II through XII grossly intact. No focal or lateralizing signs. PSYCH: Appropriate affect. Alert and oriented to person, place and time. CLINICAL LABS: White blood cell count normal, 8.5. ASSESSMENT: 1. Diverticulitis PLAN: 1. Continue diet 2. Await passage of flatus. Objective - Vital Signs Vital signs: Vital Signs Temp 98.2 F 03/08/20 12:26 Pulse 66 03/08/20 12:26 Resp 12 03/08/20 16:02 BP 124/73 03/08/20 12:26 Pulse Ox 98 03/08/20 12:26 Intake & Output 03/07/20 03/08/20 03/08/20 18:59 06:59 18:59 Intake Total 1750 1180 1630 Output Total 805 2300 1850 Balance 945 -1120 -220 Intake: IV 1750 730 Invasive Line 1 20 Invasive Line 2 10 Sodium Chloride 0.9% 1, 600 000 ml @ 75 mls/hr IV . [id number] [facility]O Rx#:[id number] Sodium Ferric Gluconat- 100 Sucrose 125 mg In Sodium Chloride 0.9% 100 ml @ 100 mls/hr IVPB Q24H [facility]O Rx#:[id number] Oral 1180 900 Output: Urine 775 2300 1850 Uretheral (Monahan) 600 Estimated Blood Loss 30 Other: Voiding Method Indwelling Catheter Indwelling Catheter # Voids 1 1 - Labs CBC & Chem 7: 03/08/20 10:26 03/08/20 10:26 Labs: Abnormal Lab Results - Last 24 Hours (Table) 03/08/20 03/08/20 Range/Units 10:26 10:26 Hgb 11.2 L (13.0-17.5) gm/dL Hct 34.7 L (39.0-53.0) % MCV 75.2 L (80.0-100.0) fL MCH 24.3 L (25.0-35.0) pg Sodium 135 L (137-145) mmol/L BUN 5 L (9-20) mg/dL Glucose 112 H (74-99) mg/dL Total Protein 6.2 L (6.3-8.2) g/dL Assessment and Plan (1) Iron deficiency anemia Current Visit: Yes Status: Acute Code(s): D50.9 - IRON DEFICIENCY ANEMIA, UNSPECIFIED SNOMED Code(s): 50682603 (2) Diverticulitis of colon with perforation Current Visit: No Status: Acute Code(s): K57.20 - DVTRCLI OF LG INT W PERFORATION AND ABSCESS W/O BLEEDING SNOMED Code(s): 25400253
[2020-03-08] MEDS ORDERED: TAMSULOSIN 0.4 MG CAP.ER.24H PO SCH (18:30)
[2020-03-08 20:55] VITALS: RESP 16
[2020-03-09] MEDS: ACETAMINOPHEN TAB 325 MG TAB PO SCH ×3 (00:02→12:00)
[2020-03-09] MEDS: metroNIDAZOLE-NS PMX 500 MG in SALINE 1 100ML.BAG IVPB SCH ×2 (00:03→09:21)
[2020-03-09] MEDS: KETOROLAC 15 MG/ML 1 ML VIAL IVP SCH ×3 (00:03→12:01)
[2020-03-09] MEDS: SODIUM CHLORIDE 0.9% 1,000 ML IV SCH (04:50)
[2020-03-09 05:24] VITALS: BP 127/78; PULSE 74; TEMP 98.3
[2020-03-09 06:00] LABS: Basophils % (A) 1 %; Eosinophils # (A) 0.1 k/uL (0-0.7); Eosinophils % (A) 1 %; HGB 10.7 gm/dL (13.0-17.5); Hypochromasia Slight; Lymphocytes # (A) 1.2 k/uL (1.0-4.8); Lymphocytes % (A) 23 %; MCH 24.9 pg (25.0-35.0); MCHC 32.3 g/dL (31.0-37.0); MCV 76.9 fL (80.0-100.0); Mean Platelet Volume 7.4; Microcytosis Slight; Monocytes # (A) 0.5 k/uL (0-1.0); Monocytes % (A) 9 %; Neutrophils # (A) 3.3 k/uL (1.3-7.7); Neutrophils % (A) 63 %; Platelet Count 196 k/uL (150-450); RBC 4.29 m/uL (4.30-5.90); RDW 15.7 % (11.5-15.5); WBC 5.3 k/uL (3.8-10.6)
[2020-03-09] MEDS: LACTATED RINGERS 1,000 ML IV SCH ×2 (08:18)
[2020-03-09] MEDS ORDERED: PANTOPRAZOLE 40 MG/10 ML VIAL IVP SCH (09:00)
[2020-03-09 10:06] LABS: ALT 14 U/L (10-49); AST 23 U/L (14-35); African American GFR (CKD) 117.4 (60.0-200.0); Albumin/Globulin Ratio 1.85 (1.60-3.17); Alkaline Phosphatase 54 U/L (41-126); Blood Urea Nitrogen <5.0 mg/dL (9.0-27.0); Calcium 8.8 mg/dL (8.7-10.3); Carbon Dioxide 27.5 mmol/L (21.6-31.8); Chloride 108 mmol/L (96-109); Glucose 96 mg/dL (70-110); Non-African American GFR(CKD) 101.3 (60.0-200.0); Potassium 3.5 mmol/L (3.5-5.5); Sodium 142 mmol/L (135-145); Total Bilirubin 0.3 mg/dL (0.3-1.2); Total Protein 5.7 g/dL (6.2-8.2)
--- NOTE | 2020-03-09 11:46 | P.DS ---
Providers Date of admission: 03/06/20 07:00 Expected date of discharge: 03/09/20 Attending physician: Brooklyn Simon Primary care physician: Geovanny Miguel - Discharge Diagnosis(es) (1) Iron deficiency anemia Current Visit: Yes Status: Acute (2) Diverticulitis of colon with perforation Current Visit: No Status: Acute Hospital Course: HOSPITAL COURSE: The patient is a 54-year-old male with past history of perforated sigmoid diverticulitis, 3 months ago who presented for sigmoid colectomy. He has pre-existing history of chronic iron deficiency anemia including rectal bleeding. He underwent enhanced colon recovery program following robotic low anterior resection with sigmoid colectomy and had done well. He was treated for his pre-existing anemia with iron infusions. Prior to discharge, he was tolerating a low fiber diet, passing flatus, and had a bowel movement. He was stable prior to discharge and voiding spontaneously with pain controlled. Discharge instructions were reviewed including post-op diet and activity. Follow up in the office 5 days described. Patient Condition at Discharge: Good Plan - Discharge Summary Discharge Rx Participant: No New Discharge Prescriptions: New Ibuprofen [Motrin] 600 mg PO Q8HR PRN #30 tab PRN Reason: Pain Acetaminophen Tab [Tylenol Tab] 1,000 mg PO Q6HR PRN #30 tablet Continue Simvastatin [Zocor] 20 mg PO HS Citalopram Hydrobromide [CeleXA] 20 mg PO DAILY Omeprazole [PriLOSEC] 20 mg PO DAILY ALPRAZolam [Xanax] 0.5 mg PO HS PRN PRN Reason: Insomnia Discontinued Multivit-Min/FA/Lycopen/Lutein [Centrum Silver Men Tablet] 1 tab PO DAILY Discharge Medication List Citalopram Hydrobromide [CeleXA] 20 mg PO DAILY 06/17/17 [History] Omeprazole [PriLOSEC] 20 mg PO DAILY 06/17/17 [History] Simvastatin [Zocor] 20 mg PO HS 06/17/17 [History] ALPRAZolam [Xanax] 0.5 mg PO HS PRN 12/05/19 [History] Acetaminophen Tab [Tylenol Tab] 1,000 mg PO Q6HR PRN #30 tablet 03/09/20 [Rx] Ibuprofen [Motrin] 600 mg PO Q8HR PRN #30 tab 03/09/20 [Rx] Follow up Appointment(s)/Referral(s): Brooklyn Simon MD [STAFF PHYSICIAN] - 03/11/20 Patient Instructions/Handouts: Acetaminophen (By mouth), Ibuprofen (By mouth), Laparoscopic Bowel Resection (DC), Colectomy Diet (DC) Activity/Diet/Wound Care/Special Instructions: No lifting over 4 pounds for 4 weeks until Apr 06August shower No bathtub soaks Avoid seeds and high fiber foods Discharge Disposition: HOME SELF-CARE
== END 2020-03-09 13:55 | disposition home or self-care (01) | DRG 331 ==
LOC: 2ORMAIN 07:00 → EDSTATUS 08:15 → 6NMEDSUR 14:58
PROVIDERS: ADMIT Surgery Plastic and Reconstructive Surgery; ATTEND Surgery Plastic and Reconstructive Surgery
PROC: 0DJD8ZZ Inspection of Lower Intestinal Tract, Via Natural or Artificial Opening Endoscopic (ICD-10-PCS; 2020-03-06)
PROC: 8E0W4CZ Robotic Assisted Procedure of Trunk Region, Percutaneous Endoscopic Approach (ICD-10-PCS; principal; 2020-03-07 07:30)
PROC: 0DTN0ZZ Resection of Sigmoid Colon, Open Approach (ICD-10-PCS; principal; 2020-03-07 07:30)
PROC: 0JN83ZZ Release Abdomen Subcutaneous Tissue and Fascia, Percutaneous Approach (ICD-10-PCS; principal; 2020-03-07 07:30)
PROC: 0DJD8ZZ Inspection of Lower Intestinal Tract, Via Natural or Artificial Opening Endoscopic (ICD-10-PCS; principal; 2020-03-07 07:30)
DX: K57.32 Diverticulitis of large intestine without perforation or abscess without bleeding (principal); E78.5 Hyperlipidemia, unspecified; F32.9 Major depressive disorder, single episode, unspecified; K44.9 Diaphragmatic hernia without obstruction or gangrene; K64.0 First degree hemorrhoids; K21.9 Gastro-esophageal reflux disease without esophagitis; F41.1 Generalized anxiety disorder; K66.0 Peritoneal adhesions (postprocedural) (postinfection); D50.9 Iron deficiency anemia, unspecified; Z79.899 Other long term (current) drug therapy; Z86.19 Personal history of other infectious and parasitic diseases; Z87.19 Personal history of other diseases of the digestive system; Z98.890 Other specified postprocedural states; Z87.39 Personal history of other diseases of the musculoskeletal system and connective tissue; Z83.3 Family history of diabetes mellitus
CPT/HCPCS: 45378; 64488; 80053; 85025; 86850; 86900; 86901; 88307

== ENCOUNTER → 2021-03-20 | Outpatient (CLI) | payer BC ==
[2021-03-20 16:33] LABS: INR 0.9 (<1.2); Partial Thromboplastin Time 22.6 sec (22.0-30.0); Prothrombin Time 10.1 sec (9.0-12.0)
[2021-03-20 22:21] LABS: HGB 8.9 g/dL (13.0-17.0); MCH 21.3 pg (27.0-32.0); MCHC 28.7 g/dL (32.0-37.0); MCV 74.3 fL (80.0-97.0); Mean Platelet Volume 10.1 fL (9.5-12.2); Platelet Count 382 X 10*3/uL (140-440); RBC 4.17 X 10*6/uL (4.40-5.60); RDW 23.5 % (11.5-14.5)
[2021-03-21 01:20] LABS: % Iron Saturation 39.59 (15.00-50.00); ALT 27 U/L (10-49); AST 16 U/L (14-35); African American GFR (CKD) 106.9 (60.0-200.0); Albumin 4.4 g/dL (3.8-4.9); Albumin/Globulin Ratio 1.86 (1.60-3.17); Alkaline Phosphatase 53 U/L (41-126); BUN/Creat Ratio 26.26 Ratio (12.00-20.00); Blood Urea Nitrogen 24.4 mg/dL (9.0-27.0); Calcium 8.9 mg/dL (8.7-10.3); Carbon Dioxide 20.7 mmol/L (20.0-27.5); Chloride 104 mmol/L (96-109); Chol/HDL Ratio 2.75 Ratio; Ferritin 13.5 ng/mL (22.0-322.0); Globulin 2.4 g/dL (1.6-3.3); Glucose 99 mg/dL (70-110); Iron 194 ug/dL (65-175); Magnesium 2.6 mg/dL (1.5-2.4); Non-African American GFR(CKD) 92.2 (60.0-200.0); Phosphorus 3.5 mg/dL (2.4-5.1); Potassium 4.6 mmol/L (3.5-5.5); Prealbumin 34.3 mg/dL (18.0-42.0); Sodium 139 mmol/L (135-145); Total Iron Binding Capacity 490 ug/dL (228-460); Total Protein 6.8 g/dL (6.2-8.2); VLDL Calculation 16.18 mg/dL (5.00-40.00)
== END | disposition home or self-care (01) ==
LOC: LABWHC1 15:48
PROVIDERS: ATTEND Surgery Plastic and Reconstructive Surgery
DX: E89.1 Postprocedural hypoinsulinemia (principal); D50.8 Other iron deficiency anemias; E44.0 Moderate protein-calorie malnutrition; E55.9 Vitamin D deficiency, unspecified; K74.1 Hepatic sclerosis; N19 Unspecified kidney failure; K50.90 Crohn's disease, unspecified, without complications
CPT/HCPCS: 36415; 80053; 80061; 82306; 82525; 82607; 82728; 82746; 83036; 83540; 83550; 83735; 83970; 84100; 84134; 84255; 84425; 84443; 84590; 84630; 85027; 85610; 85730

== ENCOUNTER → 2021-04-06 | Outpatient (CLI) | payer BC ==
--- NOTE | 2021-04-06 15:11 | FL ---
EXAMINATION TYPE: FL barium swallow DATE OF EXAM: 04/06/2021 COMPARISON: None HISTORY: Hiatal hernia gastroesophageal reflux TECHNIQUE: A double air contrast esophagram study is performed. FINDINGS: Contrast passes through the esophagus without hesitancy. No intraluminal or extramural defe cts are evident. There are scattered small tertiary contractions within the distal third of the esoph brina. A secondary contraction was evident during the exam. There is complete stripping of the esophag eal bolus the horizontal drinking position. Large hiatal hernia is present reflux is evident during the exam. Fundus body and antrum of the stomach otherwise appears normal within the [id number]. IMPRESSIONS: 1. Large hiatal hernia comprising approximately one half the stomach. 2. Small amount of gastroesophageal reflux in the distal esophagus during the exam. 3. Presbyesophagus
== END | disposition home or self-care (01) ==
LOC: RADUSWWP 10:49
PROVIDERS: ATTEND Surgery Plastic and Reconstructive Surgery
DX: K44.9 Diaphragmatic hernia without obstruction or gangrene (principal); K21.9 Gastro-esophageal reflux disease without esophagitis; K22.89 Other specified disease of esophagus
CPT/HCPCS: 74220

== ENCOUNTER 2022-03-25 08:54 | Day surgery (SDC) | payer BC ==
[2022-03-24 10:23] VITALS: BMI 30.5
--- NOTE | 2022-03-25 08:04 | P.GSHP ---
History of Present Illness H&P Date: 03/25/22 CHIEF COMPLAINT: Colon screen HISTORY OF PRESENT ILLNESS: The patient is a 56-year-old male who presents for colon screen. Lower endoscopy was offered for further evaluation and management. PAST MEDICAL HISTORY: Please see list. PAST SURGICAL HISTORY: Please see list. MEDICATIONS: Please see list. ALLERGIES: Please see list. SOCIAL HISTORY: No illicit drug use FAMILY HISTORY: No reports of Crohn disease or ulcerative colitis. REVIEW OF ORGAN SYSTEMS: CONSTITUTIONAL: No reports of fevers or chills. PHYSICAL EXAM: VITAL SIGNS: Stable GENERAL: Well-developed pleasant in no acute distress. HEENT: No scleral icterus. Extraocular movements grossly intact. Moist buccal mucosa. NECK: Supple without lymphadenopathy. CHEST: Unlabored respirations. Equal bilateral excursions. CARDIOVASCULAR: Regular rate and rhythm. Distal 2+ pulses. ABDOMEN: Soft, nontender, nondistended. MUSCULOSKELETAL: No clubbing, cyanosis, or edema. ASSESSMENT: 1. Colon screen. PLAN: 1. Recommend proceeding with a lower endoscopy Past Medical History Past Medical History: GERD/Reflux Additional Past Medical History / Comment(s): Hiatal hernia,Diverticulosis,Diverticulitis(3 hospitalizations and had 2 perforations).covid infection Jan 2022(had toal of 3 covid infections. History of Any Multi-Drug Resistant Organisms: None Reported Past Surgical History: Bowel Resection, Hernia Repair, Tonsillectomy Additional Past Surgical History / Comment(s): BILATERAL ROTATOR CUFFS ARTHROSCOPY, EGD/COLONOSCOPY. UMBILICAL HERNIA REPAIR,2 bowel resections r/t diverticulitis Past Anesthesia/Blood Transfusion Reactions: No Reported Reaction Additional Past Anesthesia/Blood Transfusion Reaction / Comment(s): PT HAD A BLOOD TRANSFUSION IN 2017 FOR LOWER HGB 6.9 NO ISSUES Smoking Status: Never smoker - Past Family History Father Family Medical History: Diabetes Mellitus Additional Family Medical History / Comment(s): paternal uncle stomach CA. paternal aunt brain CA Mother Family Medical History: Diabetes Mellitus Sister(s) Family Medical History: Diabetes Mellitus Medications and Allergies Home Medications Medication Instructions Recorded Confirmed Type Citalopram Hydrobromide [CeleXA] 20 mg PO QAM 06/17/17 03/24/22 History Omeprazole [PriLOSEC] 20 mg PO QAM 06/17/17 03/24/22 History Simvastatin [Zocor] 20 mg PO 06/17/17 03/24/22 History ALPRAZolam [Xanax] 0.5 mg PO HS PRN 12/05/19 03/24/22 History L.acidoph,Paracasei, B.lactis 1 each PO DAILY 03/24/22 03/24/22 History [Probiotic] Multivitamins, Thera [Multivitamin 1 tab PO DAILY 03/24/22 03/24/22 History (formulary)] Allergies Allergy/AdvReac Type Severity Reaction Status Date / Time No Known Allergies Allergy Verified 03/24/22 09:40
[~2022-03-25 08:54] MED LIST changes: +LACTATED RINGERS 1,000 ML IV SCH; +LIDOCAINE 1% (10MG/ML) FOR IV START INTRADERMA PRN; -SIMETHICONE 40 MG/0.6 ML DROPS 2,000 MG/30 ML BOTTLE PO ONE
[2022-03-25] MEDS ORDERED: LACTATED RINGERS 1,000 ML IV ONE (10:23)
[2022-03-25 10:25] VITALS: RESP 16; TEMP 96.9
[2022-03-25] MEDS ORDERED: PROPOFOL 10 MG/ML 20 ML VIAL IV ONE (11:08)
[2022-03-25] MEDS ORDERED: LIDOCAINE 2% INJ 20 MG/ML (2 ML VIAL) ONE (11:08)
[2022-03-25 11:14] LABS: Basophils % (A) 0 %; Eosinophils # (A) 0.1 k/uL (0-0.7); Eosinophils % (A) 2 %; HCT 40.7 % (39.0-53.0); HGB 13.4 gm/dL (13.0-17.5); Hypochromasia Moderate; Lymphocytes # (A) 1.3 k/uL (1.0-4.8); Lymphocytes % (A) 23 %; MCH 24.4 pg (25.0-35.0); MCHC 32.8 g/dL (31.0-37.0); MCV 74.5 fL (80.0-100.0); Microcytosis Slight; Monocytes # (A) 0.4 k/uL (0-1.0); Monocytes % (A) 8 %; Neutrophils # (A) 3.5 k/uL (1.3-7.7); Neutrophils % (A) 64 %; Platelet Count 308 k/uL (150-450); RBC 5.47 m/uL (4.30-5.90); RDW 15.3 % (11.5-15.5); WBC 5.5 k/uL (3.8-10.6)
--- NOTE | 2022-03-25 11:26 | P.PCN ---
Date of Procedure: 03/25/22 Description of Procedure: PREOPERATIVE DIAGNOSIS: Gastroesophageal reflux disease. Hiatal hernia Anemia POSTOPERATIVE DIAGNOSIS: Gastroesophageal reflux disease. Hiatal hernia Anemia. Diaphragmatic hiatal hernia, paraesophageal Gastric polyps Duodenal polyp OPERATION: Esophagogastroduodenoscopy with biopsies along antrum, and duodenum SURGEON: Brooklyn Simon MD ANESTHESIA: MAC. INDICATIONS: The patient is a 56-year-old male who presents with reflux disease. Benefits and risks of the procedure were described. Informed consent was obtained. DESCRIPTION: The patient was brought into the endoscopy suite and laid in the left lateral decubitus position. An Olympus gastroscope was passed along the posterior oropharynx down to the distal esophagus where the squamocolumnar junction was encountered at 36 cm from the incisors. The stomach was entered and no bile reflux was found. Additional findings are listed below. Biopsies with cold forceps were obtained of the antrum. The first through third portion of the duodenum was examined. Retroflexion of the scope confirmed Hill grade 4 lower esophageal valve. The squamocolumnar junction demonstrated LA grade B erosive esophagitis. The stomach was desufflated. The patient tolerated the procedure well. FINDINGS: Squamocolumnar junction 36 cm from the incisors. Diaphragmatic hiatus at 40 cm. Hiatal hernia, 4 cm, paraesophageal Hill grade 4 lower esophageal valve. LA grade B erosive esophagitis. Duodenal polyp, 3 mm at second portion duodenum, proximal to ampulla Vater Multiple gastric polyps, punctate 3-4 mm RECOMMENDATIONS: Recommend antireflux operation
--- NOTE | 2022-03-25 11:42 | P.PCN ---
Date of Procedure: 03/25/22 Description of Procedure: PREOPERATIVE DIAGNOSIS: Colonoscopy screening. Personal history of colon polyps History sigmoid colectomy POSTOPERATIVE DIAGNOSIS: Colonoscopy screening. Personal history of colon polyps Severe pandiverticulosis OPERATION: Colonoscopy to the cecum, ileocecal valve and appendiceal orifice. SURGEON: Brooklyn Simon MD. ANESTHESIA: MAC. INDICATIONS: The patient is a 56-year-old male who presents for colonoscopy screening he has history of colon polyps. Last colonoscopy within 5 years. Benefits and risks were described and informed consent was obtained. DESCRIPTION OF PROCEDURE: The patient had undergone Sutab prep. The patient had been brought into the operating room and laid in the left lateral decubitus position. After adequate intravenous sedation, the rectum was examined with 2% lidocaine jelly. Prostate was unremarkable. External hemorrhoids were encountered. The rectal tone was within normal limits. No lesions were palpated in the rectal vault. An Olympus colonoscope was advanced until the cecum, ileocecal valve and appendiceal orifice were clearly viewed. The prep was excellent. Severe scattered diverticulosis was encountered. No colonic polyps were found. No evidence of focal colitis was found. Retroflexion of the scope demonstrated grade 2 internal hemorrhoids without active bleeding or inflammation. The colon was desufflated. The patient had tolerated the procedure well. Withdrawal time was over 6 minutes. FINDINGS: Aronchick preparation quality scale 1 (1-5) Internal hemorrhoids, grade 2 External prolapsed hemorrhoids, grade 2 No arteriovenous malformations. No adenomatous polyps. No focal colitis. Severe pandiverticulosis RECOMMENDATIONS: Lower endoscopy in 5 years, 2026 Plan - Discharge Summary Discharge Rx Participant: No New Discharge Prescriptions: Continue Simvastatin [Zocor] 20 mg PO HS Citalopram Hydrobromide [CeleXA] 20 mg PO QAM Omeprazole [PriLOSEC] 20 mg PO QAM ALPRAZolam [Xanax] 0.5 mg PO HS PRN PRN Reason: Insomnia L.acidoph,Paracasei, B.lactis [Probiotic] 1 each PO DAILY Multivitamins, Thera [Multivitamin (formulary)] 1 tab PO DAILY Discharge Medication List Citalopram Hydrobromide [CeleXA] 20 mg PO QAM 06/17/17 [History] Omeprazole [PriLOSEC] 20 mg PO QAM 06/17/17 [History] Simvastatin [Zocor] 20 mg PO HS 06/17/17 [History] ALPRAZolam [Xanax] 0.5 mg PO HS PRN 12/05/19 [History] L.acidoph,Paracasei, B.lactis [Probiotic] 1 each PO DAILY 03/24/22 [History] Multivitamins, Thera [Multivitamin (formulary)] 1 tab PO DAILY 03/24/22 [History] Follow up Appointment(s)/Referral(s): Brooklyn Simon MD [STAFF PHYSICIAN] - As Needed Patient Instructions/Handouts: Diverticulosis Diet (GEN), Diverticulosis (DC), Hiatal Hernia (DC) Activity/Diet/Wound Care/Special Instructions: Repeat colonoscopy 5 years, 2026 Discharge Disposition: HOME SELF-CARE
[2022-03-25 12:02] VITALS: PULSE 69
[2022-03-25 12:03] VITALS: BP 120/77
== END 2022-03-25 12:18 | disposition home or self-care (01) ==
LOC: ORWHC2ENDO 08:54
PROVIDERS: ATTEND Surgery Plastic and Reconstructive Surgery
DX: Z12.11 Encounter for screening for malignant neoplasm of colon (principal); K29.50 Unspecified chronic gastritis without bleeding; K57.30 Diverticulosis of large intestine without perforation or abscess without bleeding; K44.9 Diaphragmatic hernia without obstruction or gangrene; D64.9 Anemia, unspecified; K64.1 Second degree hemorrhoids; K21.00 Gastro-esophageal reflux disease with esophagitis, without bleeding; K31.7 Polyp of stomach and duodenum; Z86.010 Personal history of colon polyps; Z98.84 Bariatric surgery status; Z90.89 Acquired absence of other organs; Z90.49 Acquired absence of other specified parts of digestive tract; Z83.3 Family history of diabetes mellitus; Z80.0 Family history of malignant neoplasm of digestive organs; Z80.8 Family history of malignant neoplasm of other organs or systems; Z79.899 Other long term (current) drug therapy; Z79.1 Long term (current) use of non-steroidal anti-inflammatories (NSAID)
CPT/HCPCS: 88305; 85025; 88342; 45378; 43239; J2704; J2001

== ENCOUNTER 2022-04-02 10:50 | Day surgery (SDC) | payer BC ==
--- NOTE | 2022-04-02 06:33 | P.GSHP ---
History of Present Illness H&P Date: 04/02/22 CHIEF COMPLAINT: Incarcerated paraesophageal hiatal hernia with gastroesophageal reflux disease. HISTORY OF PRESENT ILLNESS: The patient is a 56-year-old male who presents with large incarcerated paraesophageal hiatal hernia with symptomatic anemia for over 2 years. His symptoms are getting worse. He has completed barium swallow including upper endoscopy workup. Now he presents for surgical intervention. PAST MEDICAL HISTORY: Please see list. PAST SURGICAL HISTORY: Please see list. MEDICATIONS: Please see list. ALLERGIES: Please see list. SOCIAL HISTORY: No illicit drug use FAMILY HISTORY: No reports of Crohn disease or ulcerative colitis. REVIEW OF ORGAN SYSTEMS: CONSTITUTIONAL: No reports of fevers or chills. GI: Has GERD, diverticulosis and prior C.Diff PHYSICAL EXAM: VITAL SIGNS: Stable GENERAL: Well-developed pleasant and in no acute distress. HEENT: No scleral icterus. Extraocular movements grossly intact. Moist buccal mucosa. NECK: Supple without lymphadenopathy. CHEST: Unlabored respirations. Equal bilateral excursions. CARDIOVASCULAR: Regular rate and rhythm. Distal 2+ pulses. ABDOMEN: Soft, nondistended. No peritoneal signs. MUSCULOSKELETAL: No clubbing, cyanosis, or edema. SKIN: Well-perfused. Good skin turgor. STUDIES: CT scan from 2019 independently reviewed shows intra-thoracic paraesophageal hiatal hernia Barium swallow 2021 demonstrates no severe esophageal dysmotility ASSESSMENT: 1. Diaphragmatic paraesophageal hiatal hernia with severe gastroesophageal reflux disease. 2. History of C Diff with fecal transplant x 3. PLAN: 1. Recommend proceeding with a robotic paraesophageal hiatal hernia with possible mesh. 2. Benefits and risks of surgical intervention was discussed including possibility of open technique. 3. Inpatient hospitalization recommended of 2 nights 4. DVT prophylaxis. 5. Antibiotic prophylaxis. 6. He has also completed a very low caloric high-protein diet to address underlying hepatomegaly. 7. Non narcotic pain management including abdominal wall block described 8. Blood sugar glucose described. 9. Weight loss management described. 10. He is elevated risk for recurrent C.Diff and complications with obesity. Past Medical History Past Medical History: GERD/Reflux Additional Past Medical History / Comment(s): hiatal hernia,Diverticulosis,Diverticulitis(3 hospitalizations and had 2 perforations),covid infection Jan 2022(total of 3 covid infections) History of Any Multi-Drug Resistant Organisms: None Reported Past Surgical History: Bowel Resection, Hernia Repair, Tonsillectomy Additional Past Surgical History / Comment(s): BILATERAL ROTATOR CUFFS ARTHROSCOPY, EGD/COLONOSCOPY. UMBILICAL HERNIA REPAIR,2 bowel resections r/t diverticulitis Past Anesthesia/Blood Transfusion Reactions: No Reported Reaction Additional Past Anesthesia/Blood Transfusion Reaction / Comment(s): PT HAD A BLOOD TRANSFUSION IN 2017 FOR LOWER HGB 6.9 NO ISSUES Smoking Status: Never smoker - Past Family History Father Family Medical History: Diabetes Mellitus Additional Family Medical History / Comment(s): paternal uncle stomach CA. paternal aunt brain CA Mother Family Medical History: Diabetes Mellitus Additional Family Medical History / Comment(s): maternal aunt female CA Sister(s) Family Medical History: Diabetes Mellitus Medications and Allergies Home Medications Medication Instructions Recorded Confirmed Type Citalopram Hydrobromide [CeleXA] 20 mg PO QAM 06/17/17 03/25/22 History Omeprazole [PriLOSEC] 20 mg PO QAM 06/17/17 03/25/22 History Simvastatin [Zocor] 20 mg PO HS 06/17/17 03/25/22 History ALPRAZolam [Xanax] 0.5 mg PO HS PRN 12/05/19 03/25/22 History L.acidoph,Paracasei, B.lactis 1 each PO DAILY 03/24/22 03/25/22 History [Probiotic] Multivitamins, Thera [Multivitamin 1 tab PO DAILY 03/24/22 03/25/22 History (formulary)] Allergies Allergy/AdvReac Type Severity Reaction Status Date / Time No Known Allergies Allergy Verified 03/25/22 10:29
[~2022-04-02 10:50] MED LIST changes: +ACETAMINOPHEN TAB 500 MG TAB PO STA; +DEXAMETHASONE SOD PHOSPHATE 4 MG/ML 1 ML VIAL IV ONE; +HEPARIN SODIUM,PORCINE/PF 5,000 UNIT/0.5 ML SYRINGE SQ PRN; -LACTATED RINGERS 1,000 ML IV SCH; +ONDANSETRON 4 MG/2 ML VIAL IVP ONE; +SCOPOLAMINE 1 MG/72 HR PATCH TRANSDERM ONE; +TAMSULOSIN 0.4 MG CAP.ER.24H PO STA
[2022-04-02] MEDS: LACTATED RINGERS 1,000 ML IV SCH ×2 (11:42→22:56)
[2022-04-02 12:29] LABS: Basophils % (A) 1 %; Eosinophils # (A) 0.1 k/uL (0-0.7); Eosinophils % (A) 1 %; HCT 40.6 % (39.0-53.0); HGB 12.9 gm/dL (13.0-17.5); Hypochromasia Moderate; Lymphocytes # (A) 1.1 k/uL (1.0-4.8); Lymphocytes % (A) 21 %; MCH 23.7 pg (25.0-35.0); MCHC 31.9 g/dL (31.0-37.0); MCV 74.2 fL (80.0-100.0); Mean Platelet Volume 8.5; Microcytosis Slight; Monocytes # (A) 0.4 k/uL (0-1.0); Monocytes % (A) 7 %; Neutrophils # (A) 3.4 k/uL (1.3-7.7); Neutrophils % (A) 68 %; Platelet Count 275 k/uL (150-450); RBC 5.47 m/uL (4.30-5.90); RDW 15.2 % (11.5-15.5); WBC 5.1 k/uL (3.8-10.6)
[2022-04-02 12:40] LABS: ALT 23 U/L (4-49); African American GFR (CKD) >90 (>60 ml/min/1.73 sqM); Albumin 4.9 g/dL (3.5-5.0); Anion Gap 11 mmol/L; Blood Urea Nitrogen 17 mg/dL (9-20); Calcium 9.4 mg/dL (8.4-10.2); Carbon Dioxide 24 mmol/L (22-30); Chloride 106 mmol/L (98-107); Glucose 95 mg/dL (74-99); Non-African American GFR(CKD) >90 (>60 ml/min/1.73 sqM); Sodium 141 mmol/L (137-145); Total Bilirubin 0.9 mg/dL (0.2-1.3); Total Protein 7.9 g/dL (6.3-8.2)
[2022-04-02 12:48] LABS: AST 31 U/L (17-59); Alkaline Phosphatase 65 U/L (38-126); Potassium 4.3 mmol/L (3.5-5.1)
[2022-04-02] MEDS ORDERED: HYDROmorphone (PF) 1 MG/ML ONE (13:30)
[2022-04-02] MEDS ORDERED: GLYCOPYRROLATE 0.2 MG/ML 2 ML VIAL ONE (13:30)
[2022-04-02] MEDS ORDERED: LIDOCAINE 2% INJ 20 MG/ML (2 ML VIAL) ONE (13:30)
[2022-04-02] MEDS ORDERED: MIDAZOLAM 2 MG/2 ML VIAL ONE (13:30)
[2022-04-02] MEDS ORDERED: ROCURONIUM 10 MG/ML (5 ML VIAL) IV ONE (13:30)
[2022-04-02] MEDS ORDERED: NEOSTIGMINE 1 MG/ML 10 ML VIAL ONE (13:30)
[2022-04-02] MEDS ORDERED: PROPOFOL 10 MG/ML 20 ML VIAL IV ONE (13:30)
[2022-04-02] MEDS ORDERED: SUCCINYLCHOLINE CHLORIDE 200 MG/10 ML VIAL IV ONE (13:30)
[2022-04-02] MEDS ORDERED: fentaNYL (PF) 50 MCG/ML 2 ML AMP ONE (13:30)
[2022-04-02] MEDS ORDERED: BUPIVACAIN-EPI 0.25%-1:200,000 30 ML VIAL SQ ONE ×3 (13:53→14:06)
[2022-04-02] MEDS ORDERED: LACTATED RINGERS 1,000 ML IV ONE (14:30)
[2022-04-02] MEDS ORDERED: HYOSCYAMINE ORAL DROPS 1.875 MG/15 ML BOTTLE PO PRN (16:18)
[2022-04-02] MEDS ORDERED: diphenhydrAMINE 50 MG/ML 1 ML VIAL IVP PRN (16:18)
[2022-04-02] MEDS ORDERED: HYDROmorphone 1 MG/ML 1 ML SYRINGE IVP PRN (16:18)
[2022-04-02] MEDS ORDERED: NALOXONE 0.4 MG/ML 1 ML VIAL IV PRN (16:18)
[2022-04-02] MEDS: HYDROmorphone 0.5 MG/0.5 ML SYRINGE IVP PRN ×3 (16:20→17:16)
[2022-04-02] MEDS ORDERED: ALPRAZolam 0.5 MG TAB PO PRN (16:23)
--- NOTE | 2022-04-02 16:44 | P.OP ---
Date of Procedure: 04/02/22 Description of Procedure: SURGEON: BABAK HART MD PREOPERATIVE DIAGNOSES: 1. Symptomatic paraesophageal diaphragmatic hiatal hernia. 2. Gastroesophageal reflux disease. 3. Anemia due to large hiatal hernia POSTOPERATIVE DIAGNOSES: 1. Paraesophageal midline diaphragmatic hernia, 7 cm, with incarceration. 2. Gastroesophageal reflux disease. 3. Gastric volvulus 4. Anemia due to large hiatal hernia OPERATION: 1. Robotic-assisted da Deyanira Xi laparoscopic repair of incarcerated p araesophageal hiatal hernia, 7 x 5 cm, with [place] Biopatch A 8 x 8 cm. 2. Intraoperative esophagogastroduodenoscopy ANESTHESIA: General with local anesthetic. ESTIMATED BLOOD LOSS: 20 mL SPECIMENS REMOVED: None COMPLICATIONS: None. Condition: stable Disposition: floor FINDINGS: 1. Midline incarcerated paraesophageal hiatal hernia 7 x 5 cm 2. Intraoperative upper endoscopy confirms complete closure of hiatal hernia from Hill grade 4 to Hill grade 1 3. 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 Preoperative workup including upper endoscopy demonstrated a sliding hiatal hernia. The patient completed an esophageal manometry. Given the severity of symptoms, the patient had elected for surgical intervention. Benefits and risks including bleeding, infection, recurrence, dysphagia, injury to the lung, need for further surgery was described at length. Informed consent was obtained. DESCRIPTION: The patient was brought into the operating room and placed in supine position. Preoperatively the patient had received heparin subcutaneously for DVT prophylaxis. After general induction, the abdomen was prepped and draped in standard sterile fashion. The patient had previously voided prior to coming to the operating room. Ioban draping was placed along the abdomen. A timeout protocol was confirmed with the surgical team, for which the patient's name, procedure to be performed including DVT prophylaxis with bilateral SCDs, and preoperative antibiotics were also confirmed. A robotic da Deyanira Xi system was prepped and primed. At 12 cm from the xiphoid to just below the umbilicus, proposed port sites were marked with indelible marker along the left axillary line, left mid-clavicular line with each ports were marked 10 cm from each other. A 5 mm 0 degrees laparoscopic trocar entry was performed along the left upper quadrant. The abdomen was insufflated to 15 mmHg pressure was tolerated well. Diagnostic laparoscopy demonstrated no injury to bowel, viscera, or mesentery. No injury had occurred to the small bowel or viscera. The liver was smooth consistent with two-week high-protein low-carb diet. Previous trochar sites from cholecystectomy were used. Next, one 8 mm robotic port was placed along the right upper abdomen. An 8-mm port was were placed along the right lateral lateral abdominal wall. The camera 8-mm port was maintained along the epigastrium. Another 12 mm port was placed along the left upper abdominal wall after exchanging the 5 mm port. Please note that the ports were placed at least 20 cm away from the target anatomy. Care was taken to check that each robotic arm were safely away from collision with the bed or the patient. At the epigastrium, a medium sized Magdalena liver retractor was placed under direct visualization with the Iron Wood Grainer placed under the right shoulder of the patient. All robotic arms were used. The patient was repositioned in reverse Trendelenburg position at 21-degrees after lowering the bed. The robot was docked above the right side of the patient. Using a grasper for arm 3, a grasper for arm 1, including vessel sealer for arm 2, the robotic system was docked and primed as described. Instruments were inte rchanged by the corporate administrative assistant. I had sat at the console. The gastrohepatic ligament was cleaved using a vessel sealer. Next, the phrenoesophageal ligament was mobilized and the distal esophagus was mobilized circumferentially. The left and right crura was identified. Circumferentially, the hernia sac was excised and brought into the peritoneal cavity. Moderate dissection into the mediastinum was performed to release the esophagus into the abdominal cavity. The paraesophageal hiatal hernia sac was also incised and divided from the esophagus. Care was taken to avoid any gastrotomy. The measured defect was consistent with 3 cm axial length and 3 cm in width. After dissection, the distal esophagus of 2+ cm was brought into the abdominal cavity. Once the hiatus and crura was dissected, 2-0 VLOC nonabsorbable suture was placed to reapproximate the diaphragmatic hiatus posteriorly. To buttress the repair, a [place] Biopatch A was prepared along the back table and cut in half of a garcia-hole fashion as to reinforce the repair as an underlay. The mesh was placed along the crural repair and tagged using horizontal mattress sutures using 2-0 VLOC. I went to the head of the bed to perform intraoperative esophagogastroduodenoscopy and placement of a 56Fr bougie. The bougie was passed along the posterior oropharynx into the stomach to address pre-existing esophageal dysmotility for 2 minutes then removed. An Olympus gastroscope was passed through posterior oropharynx. Retroflexion of the scope confirmed a Hill grade 1 lower esophageal valve. A gastric cardia diverticulum was identified. The stomach had been desufflated. No evidence of leaks were found of the esophagus or stomach. The GI tract with desufflated This concluded the endoscopic portion of the case. The robot was undocked from the patient. I re-scrubbed into the case. All instruments and pneumoperitoneum and specimens were evacuated from the abdominal cavity. Incisions were reapproximated using 4-0 Monocryl in an interrupted subcuticular fashion. Liquid glue was applied to the skin. Local anesthetic was infiltrated in all wounds for postop analgesia. At the end of the procedure, needle, sponge, and instrument count was verified correct by the surgical nurse practitioner. The patient had tolerated the procedure well and was taken to the postanesthesia unit in stable condition.
[2022-04-02] MEDS ORDERED: fentaNYL PCA 500 MCG/50 ML BAG IV PRN (18:00)
[2022-04-02] MEDS: ONDANSETRON 4 MG/2 ML VIAL IVP SCH (20:22)
[2022-04-02] MEDS: 0.9% NACL WITH KCL 20 MEQ/L 1,000 ML IV SCH (21:19)
[2022-04-02] MEDS: SIMETHICONE 40 MG/0.6 ML DROPS 2,000 MG/30 ML BOTTLE PO SCH (21:19)
[2022-04-02] MEDS: ACETAMINOPHEN IV (For NPO) 1,000 MG in EMPTY BAG 1 BAG IVPB SCH (21:20)
[2022-04-02] MEDS: ALBUTEROL NEBULIZED 2.5 MG/3 ML INHALATION SCH (22:14)
[2022-04-03] MEDS: ONDANSETRON 4 MG/2 ML VIAL IVP SCH ×2 (02:04→06:44)
[2022-04-03] MEDS: ACETAMINOPHEN IV (For NPO) 1,000 MG in EMPTY BAG 1 BAG IVPB SCH ×2 (02:05→06:44)
[2022-04-03] MEDS: SIMETHICONE 40 MG/0.6 ML DROPS 2,000 MG/30 ML BOTTLE PO SCH ×2 (02:13→06:47)
[2022-04-03] MEDS: 0.9% NACL WITH KCL 20 MEQ/L 1,000 ML IV SCH (05:36)
[2022-04-03 07:48] VITALS: BP 117/68; PULSE 74; RESP 18; TEMP 98
[2022-04-03] MEDS: ALBUTEROL NEBULIZED 2.5 MG/3 ML INHALATION SCH ×2 (07:57→11:36)
[2022-04-03] MEDS ORDERED: 0.9% NACL WITH KCL 20 MEQ/L 1,000 ML IV SCH (08:00)
--- NOTE | 2022-04-03 08:56 | XR ---
Single contrast esophagram EXAMINATION TYPE: XR abdomen 2V DATE OF EXAM: 04/03/2022 8:49 AM COMPARISON: NONE CLINICAL HISTORY: Status post Jayro fundoplication The patient ingested contrast without difficulty or delay. Noted are changes of Jayro fundoplicatio n. There is no evidence for leak or obstruction. Small amount of residual contrast within the distal esophagus. IMPRESSION: Post-surgical change of Jayro fundoplication without evidence for leak or obstruction.
[2022-04-03] MEDS ORDERED: PANTOPRAZOLE 40 MG/10 ML VIAL IV SCH (09:00)
[2022-04-03] MEDS ORDERED: VANCOMYCIN 125 MG CAPSULE PO SCH (09:00)
[2022-04-03] MEDS ORDERED: ENOXAPARIN 30 MG/0.3 ML SYRINGE SQ SCH (09:00)
[2022-04-03] MEDS ORDERED: LACTOBACILLUS ACIDOPH & BULGAR 1 EACH PACKET PO SCH (09:00)
--- NOTE | 2022-04-03 11:29 | P.DS ---
Providers Date of admission: 04/02/2022 Expected date of discharge: 04/03/22 Attending physician: Brooklyn Simon Primary care physician: [facility] Course: This a 56-year-old male who underwent laparoscopic repair of hiatal hernia with Dr. Morrissey yesterday. Patient did well postoperative. He will be discharged home today. Procedures: Laparoscopic hiatal hernia Patient Condition at Discharge: Good Plan - Discharge Summary Discharge Rx Participant: No New Discharge Prescriptions: New Ibuprofen [Motrin] 600 mg PO Q6HR PRN #40 tab PRN Reason: Pain Acetaminophen Tab [Tylenol] 650 mg PO Q6H #30 tab No Action Simvastatin [Zocor] 20 mg PO HS Citalopram Hydrobromide [CeleXA] 20 mg PO QAM Omeprazole [PriLOSEC] 20 mg PO QAM ALPRAZolam [Xanax] 0.5 mg PO HS PRN PRN Reason: Insomnia L.acidoph,Paracasei, B.lactis [Probiotic] 1 each PO DAILY Vancomycin HCl [Vancocin HCl] 125 mg PO DAILY Multivitamins, Thera [Multivitamin (formulary)] 1 tab PO DAILY Discharge Medication List Citalopram Hydrobromide [CeleXA] 20 mg PO QAM 06/17/17 [History] Omeprazole [PriLOSEC] 20 mg PO QAM 06/17/17 [History] Simvastatin [Zocor] 20 mg PO HS 06/17/17 [History] ALPRAZolam [Xanax] 0.5 mg PO HS PRN 12/05/19 [History] L.acidoph,Paracasei, B.lactis [Probiotic] 1 each PO DAILY 03/24/22 [History] Multivitamins, Thera [Multivitamin (formulary)] 1 tab PO DAILY 03/24/22 [History] Vancomycin HCl [Vancocin HCl] 125 mg PO DAILY 04/02/22 [History] Acetaminophen Tab [Tylenol] 650 mg PO Q6H #30 tab 04/03/22 [Rx] Ibuprofen [Motrin] 600 mg PO Q6HR PRN #40 tab 04/03/22 [Rx] Follow up Appointment(s)/Referral(s): Brooklyn Simon MD [STAFF PHYSICIAN] - 1 Week
[2022-04-03 11:36] LABS: Basophils # (A) 0.01 X 10*3/uL (0.00-0.10); Basophils % (A) 0.1 %; Eosinophils # (A) 0 X 10*3/uL (0.04-0.35); Eosinophils % (A) 0 %; HCT 33.3 % (39.6-50.0); Immature Grans, Automated 0.3 %; Lymphocytes # (A) 1.11 X 10*3/uL (0.90-5.00); Lymphocytes % (A) 14.3 %; MCH 22.6 pg (27.0-32.0); MCV 75.3 fL (80.0-97.0); Monocytes # (A) 0.76 X 10*3/uL (0.20-1.00); Monocytes % (A) 9.8 %; NRBC Per 100 WBC 0 /100 WBCS (0.0-0.0); Neutrophils # (A) 5.84 X 10*3/uL (1.80-7.70); Neutrophils % (A) 75.5 %; Platelet Count 247 X 10*3/uL (140-440); RBC 4.42 X 10*6/uL (4.40-5.60); RDW 16.4 % (11.5-14.5); WBC 7.74 X 10*3/uL (4.50-10.00)
[2022-04-03 12:42] LABS: African American GFR (CKD) 110.7 (60.0-200.0); Anion Gap 11.9 mmol/L (10.00-18.00); Blood Urea Nitrogen 13.2 mg/dL (9.0-27.0); Calcium 8.4 mg/dL (8.7-10.3); Carbon Dioxide 20.7 mmol/L (20.0-27.5); Magnesium 2.1 mg/dL (1.5-2.4); Non-African American GFR(CKD) 95.5 (60.0-200.0); Phosphorus 3.8 mg/dL (2.4-5.1); Potassium 4.5 mmol/L (3.5-5.5)
[2022-04-03 13:04] VITALS: BMI 29.0
== END 2022-04-03 13:00 | disposition home or self-care (01) ==
LOC: OR 10:50 → 6NMEDSUR 15:58 → OR 04-03 13:00
PROVIDERS: ATTEND Surgery Plastic and Reconstructive Surgery
DX: K44.9 Diaphragmatic hernia without obstruction or gangrene (principal); D64.9 Anemia, unspecified; K21.9 Gastro-esophageal reflux disease without esophagitis; Z86.16 Personal history of COVID-19; Z98.84 Bariatric surgery status; Z90.89 Acquired absence of other organs; Z83.3 Family history of diabetes mellitus; Z79.899 Other long term (current) drug therapy; Z79.1 Long term (current) use of non-steroidal anti-inflammatories (NSAID)
CPT/HCPCS: 94760; 80051; 80053; 82310; 82565; 83735; 84100; 84520; 85025 ×2; 74019; 43282; J1100; J0690; J2405 ×2; J1650; J1170 ×2; J0131 ×2; C9113; Q9967; J1644

== ENCOUNTER → 2024-06-15 | Day surgery (SDC) | payer BC, OTHER ==
[2024-06-13 15:10] VITALS: BMI 32.3
[~2024-06-15] MED LIST changes: -ACETAMINOPHEN TAB 500 MG TAB PO STA; -DEXAMETHASONE SOD PHOSPHATE 4 MG/ML 1 ML VIAL IV ONE; -HEPARIN SODIUM,PORCINE/PF 5,000 UNIT/0.5 ML SYRINGE SQ PRN; -LIDOCAINE 1% (10MG/ML) FOR IV START INTRADERMA PRN; -ONDANSETRON 4 MG/2 ML VIAL IVP ONE; +PROPOFOL 10 MG/ML 20 ML VIAL IV ONE; -SCOPOLAMINE 1 MG/72 HR PATCH TRANSDERM ONE; -TAMSULOSIN 0.4 MG CAP.ER.24H PO STA
[2024-06-15 13:10] VITALS: TEMP 98
[2024-06-15] MEDS: IV FLUID CONTINUATION 1,000 ML IV ONE (13:14)
[2024-06-15] MEDS: LACTATED RINGERS 1,000 ML IV SCH (13:18)
--- NOTE | 2024-06-15 13:42 | P.PCN ---
Date of Procedure: 06/15/24 Procedure(s) Performed: BRIEF HISTORY: Patient is a 58-year-old pleasant white male scheduled for an elective colonoscopy as a part of evaluation of lower abdominal pain, change in bowel habits associated intermittent nausea vomiting abdominal bloating on and off for the last several months duration. History of sigmoid resection for complicated sigmoid diverticular disease 5 years ago. He also has prior history of colon polyps/adenoma. PROCEDURE PERFORMED: Colonoscopy with biopsy. PREOPERATIVE DIAGNOSIS: Abdominal pain, diarrhea, abdominal bloating. IV sedation per Anesthesia. PROCEDURE: After informed consent was obtained, the patient, was brought into the endoscopy unit. IV sedation was administered by Anesthesia under continuous monitoring. Digital rectal examination was normal. Initially the Olympus CF-160 flexible video colonoscope was then inserted in the rectum, gradually advanced into the cecum without any difficulty. Careful examination was performed as the scope was gradually being withdrawn. Ileocecal valve and the appendiceal orifice were visualized and appeared normal. Prep was fair.. Mucosa of the cecum solid stool noted. Mucosa of the, ascending colon, transverse colon, descending colon, sigmoid colon, and rectum appeared normal. Anastomosis of previous sigmoid colectomy located at 30 cm from the anal verge that appeared widely patent. Scattered diffuse diverticulosis seen. And biopsies were done from the ascending and descending colon rule out microscopic/collagenous colitis. Retroflexion was performed in the rectum and no lesions were seen. The patient tolerated the procedure well. IMPRESSION: Normal-appearing colon from rectum to cecum was of active colitis or colorectal neoplasia Scattered diffuse diverticulosis Anastomosis from previous sigmoid colectomy at 20 cm from the anal verge and appeared normal and widely patent. RECOMMENDATIONS: Findings of this examination were discussed with the patient as well as his family. He was advised to follow-up with the biopsy results.. He will be seen in the office in 2 to 3 weeks.
[2024-06-15 13:51] VITALS: RESP 16
[2024-06-15 14:30] VITALS: BP 133/81; PULSE 70
== END ==
LOC: ORWHC2ENDO 11:32
PROVIDERS: ATTEND Internal Medicine Gastroenterology
DX: K52.832 Lymphocytic colitis (principal); K57.30 Diverticulosis of large intestine without perforation or abscess without bleeding; Z86.0101 Personal history of adenomatous and serrated colon polyps; Z90.49 Acquired absence of other specified parts of digestive tract
CPT/HCPCS: 88305; 45380; J2704